=== PATIENT | female | born 1960 | race Caucasian/White ===

== ENCOUNTER 2018-02-04 19:12 | Emergency (ER) | payer MEDICARE, MEDICAID ==
--- NOTE | 2018-02-04 20:01 | EDM.PDOC ---
ED HPI GENERAL MEDICAL PROBLEM - General Chief Complaint: General Stated Complaint: LOWER ABDOMINAL PAIN Time Seen by Provider: 02/04/18 19:30 Source of Information: Reports: Patient History Limitations: Reports: No Limitations - History of Present Illness INITIAL COMMENTS - FREE TEXT/NARRATIVE: According to patient she started to have abdominal pain around 9 Am today. pain was around the umbilicus and was waxing and waning type, the pain got intense around noon and she had 2 episodes of vomiting, which contained undigested food particles. Last episode of vomiting was round 4 Pm today, at which point the pain resolved and presently patient feels fine. no nausea or abdominal pain.Pt has had normal bowel movement today. Pt does have umbilical hernia and wants to make sure that the hernia has not ruptured or opened up. No abdominal pain or bloating. Not in any pain presently .No other complaints. Onset: Today Onset Date: 02/04/18 Onset Time: 09:00 Duration: Other (resolved presently, no discomfort) Location: Reports: Abdomen Quality: Reports: Ache Severity: Mild Improves with: Reports: None Worsens with: Reports: None Associated Symptoms: Reports: Nausea/Vomiting. Denies: Confusion, Chest Pain, Cough, Diaphoresis, Fever/Chills, Rash, Seizure, Shortness of Breath, Syncope, Weakness - Related Data Allergies Allergy/AdvReac Type Severity Reaction Status Date / Time penicillin Allergy Rash Verified 02/04/18 19:33 Home Meds: Home Meds ARIPiprazole [Abilify] 1 mg PO DAILY 03/08/15 [History] FLUoxetine HCl [Fluoxetine HCl] 40 mg PO DAILY 03/08/15 [History] Lisinopril 10 mg PO DAILY 03/08/15 [History] Simvastatin 20 mg PO DAILY 03/08/15 [History] clonazePAM [Clonazepam] 0.5 mg PO DAILY 03/08/15 [History] ARIPiprazole [Abilify] 2 mg PO DAILY 03/09/15 [History] Ibuprofen 800 mg PO DAILY 03/09/15 [History] Omeprazole 20 mg PO DAILY 03/09/15 [History] valACYclovir HCl [Valtrex] 500 mg PO DAILY PRN 03/09/15 [History] Past Medical History Cardiovascular History: Reports: [place] Other Cardiovascular History: stress test showed probably [place] Respiratory History: Reports: None Other Genitourinary History: herpes,genital Other OB/BYN History: no pregnancies reported Musculoskeletal History: Reports: None Other Musculoskeletal History: back pain history: better with past PT intervention Neurological History: Reports: None Other Psychiatric History: social phobia Oncologic (Cancer) History: Reports: None - Past Surgical History Other Cardiovascular Surgeries/Procedures: no pacemaker Other Musculoskeletal Surgeries/Procedures:: no further complaints ED ROS GENERAL - Review of Systems Review Of Systems: See Below Constitutional: Denies: Fever, Chills, Malaise HEENT: Denies: Rhinitis, Throat Pain Respiratory: Denies: Cough, Sputum Cardiovascular: Denies: Chest Pain, Lightheadedness GI/Abdominal: Reports: Abdominal Pain, Flatus, Nausea, Vomiting. Denies: Anorexia, Black Stool, Constipation, Diarrhea, Decreased Appetite, Distension : Denies: Dysuria, Flank Pain Musculoskeletal: Denies: Joint Pain, Joint Swelling Skin: Denies: Bruising, Pruritis, Rash ED EXAM, GENERAL - Physical Exam Exam: See Below Exam Limited By: No Limitations General Appearance: Alert, WD/WN Eye Exam: Bilateral Eye: EOMI, PERRL Ears: Normal External Exam, Normal Canal, Hearing Grossly Normal, Normal TMs Ear Exam: Bilateral Ear: Auricle Normal, Canal Normal, TM normal Nose: Normal Inspection, Normal Mucosa, No Blood Throat/Mouth: Normal Inspection, Normal Lips, Normal Teeth, Normal Gums, Normal Oropharynx, Normal Voice, No Airway Compromise Head: Atraumatic, Normocephalic Neck: Normal Inspection, Supple, Non-Tender, Full Range of Motion Respiratory/Chest: No Respiratory Distress, Lungs Clear, Normal Breath Sounds, No Accessory Muscle Use, Chest Non-Tender Cardiovascular: Normal Peripheral Pulses, Regular Rate, Rhythm, No Edema, No Gallop, No JVD, No Murmur, No Rub Peripheral Pulses: 2+: Carotid (L), Carotid (R), Radial (L), Radial (R) GI/Abdominal: Normal Bowel Sounds, Soft, Non-Tender, No Organomegaly, No Distention, No Abnormal Bruit, No Mass, Other (On palation deep in the umbilical area. there is a midline defect felt proximal to umbilicus about 2 cm in lenght. + cough impulse. The hernial sac is empty.) Course - Vital Signs Text/Narrative:: Pt reassured that she does have abdominal wall defect superior to the umbilcs. So she might have had partial omentum or small bowel strangulation, which has naturally reduced at this point. Her symptoms have compeltely resolved. I have advised patient to not iftt heavy weight. avoid constipation and also hold pillow against abdomen when she cough to prevent hernial enlargement. Also She will be scheduled to have surgical consult with Dr. Solis the visiting general surgeon at [facility]. If her symptoms reoccur advised to return to emergency room [facility].Pt understands and agrees with the plan. Departure - Departure Time of Disposition: 20:00 Disposition: Home, Self-Care 01 Condition: Fair Clinical Impression: Umbilical hernia - Discharge Information Additional Instructions: Pt reassured that she does have abdominal wall defect superior to the umbilcs. So she might have had partial omentum or small bowel strangulation, which has naturally reduced at this point. Her symptoms have compeltely resolved. I have advised patient to not iftt heavy weight. avoid constipation and also hold pillow against abdomen when she cough to prevent hernial enlargement. Also She will be scheduled to have surgical consult with Dr. Solis the visiting general surgeon at [facility]. If her symptoms reoccur advised to return to emergency room [facility].Pt understands and agrees with the plan. - Problem List & Annotations (1) Umbilical hernia SNOMED Code(s): 260454977 Code(s): K42.9 - UMBILICAL HERNIA WITHOUT OBSTRUCTION OR GANGRENE Status: Acute - Problem List Review Problem List Initiated/Reviewed/Updated: Yes - Assessment/Plan Assessment:: Umbilical hernia Plan: Pt reassured that she does have abdominal wall defect superior to the umbilcs. So she might have had partial omentum or small bowel strangulation, which has naturally reduced at this point. Her symptoms have compeltely resolved. I have advised patient to not iftt heavy weight. avoid constipation and also hold pillow against abdomen when she cough to prevent hernial enlargement. Also She will be scheduled to have surgical consult with Dr. Solis the visiting general surgeon at [facility]. If her symptoms reoccur advised to return to emergency room [facility]NE.Pt understands and agrees with the plan.
[2018-02-04 21:59] VITALS: BP 100/69
== END 2018-02-04 20:06 | disposition home or self-care (01) ==
LOC: LB.ED 19:12
DX: K42.9 Umbilical hernia without obstruction or gangrene (principal); Z88.0 Allergy status to penicillin; Z79.899 Other long term (current) drug therapy
CPT/HCPCS: 99283; 99284

== ENCOUNTER 2018-03-15 08:24 | Day surgery (SDC) | payer MEDICARE, MEDICAID ==
[~2018-03-15 08:24] MED LIST: Acetaminophen/HYDROcodone 325-5 MG Tab PO PRN; Lactated Ringers 1,000 ML IV SCH; Morphine 2 MG/ML Syringe IVPUSH PRN; Ondansetron 4 MG/2 ML SDV IVPUSH PRN; Sodium Chloride 0.9% 10 ML Syringe FLUSH PRN; ceFAZolin 1 GM in Sodium Chloride 0.9% 50 ML IV ONE
[2018-03-15] MEDS: Lactated Ringers 1,000 ML IV SCH ×2 (09:16→13:33)
[2018-03-15] MEDS ORDERED: ceFAZolin 1 GM Vial ONE (09:55)
[2018-03-15] MEDS ORDERED: Clindamycin Phosphate 900 MG in Dextrose 5% in Water 50 ML IV ONE ×2 (11:50)
[2018-03-15] MEDS ORDERED: Ondansetron 4 MG/2 ML SDV ONE (12:30)
[2018-03-15] MEDS ORDERED: Dexamethasone 4 MG/ML SDV ONE (12:30)
[2018-03-15] MEDS ORDERED: Ketorolac 30 MG/ML SDV ONE (12:30)
[2018-03-15] MEDS ORDERED: Glycopyrrolate 0.2 MG/ML 2 ML SDV ONE (12:30)
[2018-03-15] MEDS ORDERED: Midazolam 1 MG/ML 5 ML SDV ONE (12:30)
[2018-03-15] MEDS ORDERED: ceFAZolin 1,000 MG VIAL ONE (12:30)
[2018-03-15] MEDS ORDERED: Succinylcholine 200 MG/10 ML MDV ONE (12:30)
[2018-03-15] MEDS ORDERED: Propofol 200 MG/20 ML SDV ONE (12:30)
[2018-03-15] MEDS ORDERED: Lidocaine 2% 20 ML MDV ONE (12:30)
[2018-03-15] MEDS ORDERED: ePHEDrine 50 MG/ML SDV ONE (12:30)
--- NOTE | 2018-03-15 13:54 | OR ---
DATE OF OPERATION: 03/15/2018 DIRECT SALES CONSULTANT: Yandy Stafford RN. PREOPERATIVE DIAGNOSIS: Recurrent umbilical hernia. POSTOPERATIVE DIAGNOSIS: Recurrent umbilical hernia. PROCEDURE: Open umbilical hernia repair with explantation of old mesh and reimplantation of mesh. ANESTHESIA: General. ESTIMATED BLOOD LOSS: Minimal. COMPLICATIONS: None. INDICATION FOR THE PROCEDURE: The patient is a 57-year-old female, who has had previous open umbilical hernia repair. The patient now feels she has recurrence. She does have palpable mesh in the subcutaneous space, and she would like it repaired. DESCRIPTION OF PROCEDURE: Informed consent was obtained from the patient. The patient was taken to the operating room and placed on table in supine position. General anesthesia was administered. The patient did receive preoperative antibiotics. Her abdomen was prepped and draped in a sterile fashion. Skin to the left periumbilical area was infiltrated with local anesthetic. Opening incision carried out with a 15 blade to the left of the umbilicus. I dissected down through the subcutaneous tissues with blunt dissection as well as with electrocautery. Mesh was palpable. We did come around the umbilicus and mesh with P on clamps. The umbilicus was bluntly and sharply dissected free from the mesh and underlying subcutaneous tissue. Once the umbilicus was off, the mesh was grasped with Allis clamps. Hernia sac was present around this as well. Hernia sac was opened with Metzenbaum scissors. Hernia sac was sharply dissected away from the previously placed mesh plug with sharp dissection as well as electrocautery. Mesh plug was then removed and passed off the field. The remaining hernia sac was excised with electrocautery. The hernia defect measured about 8 mm, slightly extended inferiorly to create room for mesh. Finger sweep showed no intraabdominal adhesions. A 4.3 cm piece of self-expanding mesh was chosen. This was sutured in place with 2-0 Prolene suture in a parachute fashion. Once these were tied, the hernia defect was nicely obliterated. Fascia was then closed with 0 Vicryl suture. The wound was irrigated and dried. No active bleeding was seen. The umbilicus was tacked down to the fascia with 2-0 Vicryl and subcutaneous tissue was reapproximated with 2-0 Vicryl. Deep dermal layer was closed with 3-0 Vicryl. Skin was closed with 4-0 Monocryl in a running, subcuticular fashion. At the end of the case, all sponge, needle counts, and instrument counts correct. Mastisol Steri- Strips and a sterile dressing was applied. The patient tolerated the procedure well, was extubated, and brought to recovery room in good condition. YARIEL /[id number]
[2018-03-15 14:06] VITALS: BP 148/88
== END 2018-03-15 15:46 | disposition home or self-care (01) ==
LOC: LB.SDS 08:24
PROVIDERS: ATTEND Surgery
DX: K42.9 Umbilical hernia without obstruction or gangrene (principal); Z88.0 Allergy status to penicillin
CPT/HCPCS: A9270-GY; C1781; J0330; J0690; J1100; J1885; J2250; J2270; J2405; J2704; J3490; J7050; J7060; J7120; S0077

== ENCOUNTER 2019-01-14 12:50 | Emergency (ER) | payer MEDICARE, MEDICAID ==
[2019-01-14 13:58] VITALS: BP 150/98
--- NOTE | 2019-01-14 14:26 | EDM.PDOCBH ---
ED HPI GENERAL MEDICAL PROBLEM - General Chief Complaint: Behavioral/Psych Stated Complaint: CAN'T HEAR Time Seen by Provider: 01/14/19 13:30 Source of Information: Reports: Patient History Limitations: Reports: No Limitations - History of Present Illness INITIAL COMMENTS - FREE TEXT/NARRATIVE: This is a 58yo F here for concerns of feeling off and lightheaded. She denies the room spinning but feels anxious. She denies feeling like she has to pass out either. Patient has a feeling of worry and unable to stand still and possibly dizzy. She denies any chest pain, no shortness of breath or other health issues. Onset: Sudden Duration: Minutes:, Resolved Prior to Arrival Location: Reports: Generalized Severity: Mild Improves with: Reports: None Worsens with: Reports: None Associated Symptoms: Reports: Diaphoresis - Related Data Allergies Allergy/AdvReac Type Severity Reaction Status Date / Time penicillin Allergy Rash Verified 03/15/18 08:58 Home Meds: Home Meds FLUoxetine HCl [Fluoxetine HCl] 60 mg PO DAILY 03/08/15 [History] Lisinopril 10 mg PO DAILY 03/08/15 [History] Simvastatin 20 mg PO QPM 03/08/15 [History] clonazePAM [Clonazepam] 0.5 mg PO BID 03/08/15 [History] ARIPiprazole [Abilify] 1 mg PO DAILY 03/09/15 [History] Ibuprofen 800 mg PO TID PRN 03/09/15 [History] Omeprazole 20 mg PO DAILY 03/09/15 [History] Aspirin [Yana Chewable] 81 mg PO DAILY 02/04/18 [History] Acyclovir [Zovirax 5% Oint] 1 applic TOP DAILY PRN 03/15/18 [History] Past Medical History Cardiovascular History: Reports: High Cholesterol, Hypertension, [place] Other Cardiovascular History: stress test showed probably [place] Respiratory History: Reports: None Gastrointestinal History: Reports: GERD, Other (See Below) Other Gastrointestinal History: Umbilical Hernia Other Genitourinary History: herpes,genital 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 pregnancies reported Musculoskeletal History: Reports: None Other Musculoskeletal History: back pain history: better with past PT intervention Neurological History: Reports: None, Migraines Other Neuro History: had migraines several years ago Psychiatric History: Reports: Anxiety, Depression, PTSD Other Psychiatric History: social phobia Oncologic (Cancer) History: Reports: None - Past Surgical History Other Cardiovascular Surgeries/Procedures: no pacemaker GI Surgical History: Reports: Hernia Repair/Other Other GI Surgeries/Procedures: Umbilical Hernia repair Other Musculoskeletal Surgeries/Procedures:: no further complaints Social & Family History - Family History Family Medical History: Noncontributory - Tobacco Use Smoking Status *Q: Never Smoker - Caffeine Use Caffeine Use: Reports: Coffee - Recreational Drug Use Recreational Drug Use: No ED ROS GENERAL - Review of Systems Review Of Systems: ROS reveals no pertinent complaints other than HPI. ED EXAM, BEHAVIORAL HEALTH - Physical Exam Exam: See Below Exam Limited By: No Limitations General Appearance: Alert, WD/WN, Mild Distress Eye Exam: Bilateral Eye: EOMI, PERRL Ears: Normal External Exam Nose: Normal Inspection Throat/Mouth: Normal Inspection Head: Atraumatic, Normocephalic Neck: Normal Inspection, Supple Respiratory/Chest: No Respiratory Distress, Lungs Clear, Normal Breath Sounds Cardiovascular: Normal Peripheral Pulses, Regular Rate, Rhythm, No Edema GI/Abdominal: Normal Bowel Sounds Extremities: Normal Inspection Neurological: Alert, Normal Mood/Affect, CN II-XII Intact, Normal Cognition, Normal Gait, Normal Reflexes, No Motor/Sensory Deficits, Oriented x 3 COURSE, BEHAVIORAL HEALTH COMP - Course Vital Signs: Last Vital Signs Temp 36.6 C 01/14/19 12:50 Pulse 69 01/14/19 12:50 Resp 16 01/14/19 12:50 BP 150/98 H 01/14/19 12:50 Pulse Ox 96 01/14/19 12:50 Orders, Labs, Meds: Active Orders 24 hr Category Date Time Status UA W/MICROSCOPIC [URIN] Stat Lab 01/14/19 13:38 Ordered Laboratory Tests 01/14/19 01/14/19 Range/Units 13:38 13:38 WBC 8.1 (4.0-11.0) K/uL RBC 4.53 (3.80-5.80) M/uL Hgb 13.6 (11.5-16.5) g/dL Hct 41.1 (37.0-47.0) % MCV 91 (76-96) fL MCH 30.0 (27.0-32.0) pg MCHC 33.1 (31.0-35.0) g/dL RDW 12.5 (11.0-16.0) % Plt Count 215 (150-500) K/uL MPV 10.2 H (6.0-10.0) fL Neut % (Auto) 69.3 (45.0-70.0) % Lymph % (Auto) 20.6 (20.0-40.0) % Branch % (Auto) 8.2 (3.0-10.0) % Eos % (Auto) 1.5 (1.0-5.0) % Baso % (Auto) 0.4 (0.0-0.5) % Neut # (Auto) 5.59 (2.00-7.50) K/uL Lymph # (Auto) 1.66 (1.50-4.00) K/uL Branch # (Auto) 0.66 (0.20-0.80) K/uL Eos # (Auto) 0.12 (0.04-0.40) K/uL Baso # (Auto) 0.03 (0.02-0.10) K/uL Sodium 141 (136-145) mmol/L Potassium 4.3 (3.5-5.1) mmol/L Chloride 103 (98-107) mmol/L Carbon Dioxide 28.2 (21.0-32.0) mmol/L Anion Gap 14.1 (5.0-15.0) mmol/L BUN 10 (8-26) mg/dL Creatinine 1.05 H (0.55-1.02) mg/dL Est Cr Clr Drug Dosing 5.35 mL/min Estimated GFR (MDRD) 53 L (>60) MLS/MIN BUN/Creatinine Ratio 9.5 (6-25) Glucose 84 (74-100) mg/dL Calcium 9.0 (8.5-10.1) mg/dL Total Bilirubin 0.3 D (0.0-1.0) mg/dL AST 20 (15-37) U/L ALT 30 (12-78) U/L Alkaline Phosphatase 68 (46-116) U/L Total Protein 7.7 (6.4-8.2) g/dL Albumin 3.9 (3.4-5.0) g/dL Globulin 3.8 (2.2-4.2) g/dL Albumin/Globulin Ratio 1.0 (0.8-2.0) TSH, Ultra Sensitive 0.532 (0.358-3.740) uIU/mL Departure - Departure Time of Disposition: 14:00 Disposition: Home, Self-Care 01 Condition: Good Clinical Impression: Anxiety - Discharge Information Referrals: PCP,None [Primary Care Provider] - Forms: ED Department Discharge Care Plan Goals: Keep appointment with Dr. Johns. Can try to cut abilify in 1/2. Your labs are good. Ask Dr. Gomez if he would like to change dose of abilify. - Problem List & Annotations (1) Anxiety SNOMED Code(s): 32511233 Code(s): F41.9 - ANXIETY DISORDER, UNSPECIFIED Status: Acute - Problem List Review Problem List Initiated/Reviewed/Updated: Yes - My Orders Last 24 Hours: My Active Orders 01/14/19 13:38 UA W/MICROSCOPIC [URIN] Stat - Assessment/Plan Last 24 Hours: My Active Orders 01/14/19 13:38 UA W/MICROSCOPIC [URIN] Stat
== END 2019-01-14 14:41 | disposition home or self-care (01) ==
LOC: LB.ED 12:50
DX: F41.9 Anxiety disorder, unspecified (principal); K21.9 Gastro-esophageal reflux disease without esophagitis; I10 Essential (primary) hypertension; I25.2 Old myocardial infarction; F32.9 Major depressive disorder, single episode, unspecified; Z79.899 Other long term (current) drug therapy; Z79.82 Long term (current) use of aspirin; Z88.0 Allergy status to penicillin
CPT/HCPCS: 36415; 80053; 84443; 85025; 99283

== ENCOUNTER 2019-01-17 19:59 | Emergency (ER) | payer MEDICARE, MEDICAID ==
[2019-01-17 20:24] VITALS: BP 103/84
[2019-01-17] MEDS ORDERED: risperiDONE 1 MG Tab ONE ×2 (20:33→20:40)
--- NOTE | 2019-01-21 13:07 | EDM.PDOC ---
ED HPI GENERAL MEDICAL PROBLEM - General Chief Complaint: General Stated Complaint: ANXIETY/MEDS DID NOT GET FILLED Time Seen by Provider: 01/17/19 20:00 Source of Information: Reports: Patient History Limitations: Reports: No Limitations - History of Present Illness INITIAL COMMENTS - FREE TEXT/NARRATIVE: This is a 58yo F who had a telemedicine consult today that was not able to be done due to the internet being down. She did discuss with Dr. Lopez's nurse and was ordered to take 0.5 mg of Risperidal qhs and f/u with Dr. Lopez. She is anxious that her symptoms are worsening and would like to start on her medications but did not find her prescription at the pharmacy today. Onset: Today Location: Reports: Generalized Severity: Mild Improves with: Reports: Medication Treatments TRANSPORTATION OFFICER: Reports: Other Medication(s) - Related Data Allergies Allergy/AdvReac Type Severity Reaction Status Date / Time penicillin Allergy Rash Verified 01/17/19 20:20 Home Meds: Home Meds FLUoxetine HCl [Fluoxetine HCl] 60 mg PO DAILY 03/08/15 [History] Lisinopril 10 mg PO DAILY 03/08/15 [History] Simvastatin 20 mg PO QPM 03/08/15 [History] clonazePAM [Clonazepam] 0.5 mg PO TID 03/08/15 [History] ARIPiprazole [Abilify] 0.5 mg PO DAILY 03/09/15 [History] Ibuprofen 800 mg PO TID PRN 03/09/15 [History] Omeprazole 20 mg PO ACBREAKFAST 03/09/15 [History] Aspirin [Yana Chewable] 81 mg PO DAILY 02/04/18 [History] Acyclovir [Zovirax 5% Oint] 1 applic TOP DAILY PRN 03/15/18 [History] Past Medical History Cardiovascular History: Reports: High Cholesterol, Hypertension, [place] Other Cardiovascular History: stress test showed probably [place] Respiratory History: Reports: None Gastrointestinal History: Reports: GERD, Other (See Below) Other Gastrointestinal History: Umbilical Hernia Other Genitourinary History: herpes,genital 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 SHEET 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: no pregnancies reported Musculoskeletal History: Reports: None Other Musculoskeletal History: back pain history: better with past PT intervention Neurological History: Reports: None, Migraines Other Neuro History: had migraines several years ago Psychiatric History: Reports: Anxiety, Depression, PTSD Other Psychiatric History: social phobia Oncologic (Cancer) History: Reports: None - Past Surgical History Other Cardiovascular Surgeries/Procedures: no pacemaker GI Surgical History: Reports: Hernia Repair/Other Other GI Surgeries/Procedures: Umbilical Hernia repair Other Musculoskeletal Surgeries/Procedures:: no further complaints Social & Family History - Family History Family Medical History: Noncontributory - Caffeine Use Caffeine Use: Reports: Coffee ED ROS GENERAL - Review of Systems Review Of Systems: ROS reveals no pertinent complaints other than HPI. ED EXAM, GENERAL - Physical Exam Exam: See Below Exam Limited By: No Limitations General Appearance: Alert, WD/WN, Anxious Eye Exam: Bilateral Eye: EOMI Ears: Normal External Exam Nose: Normal Inspection Throat/Mouth: Normal Inspection Head: Atraumatic, Normocephalic Neck: Normal Inspection Respiratory/Chest: No Respiratory Distress, Lungs Clear, Normal Breath Sounds Cardiovascular: Normal Peripheral Pulses, Regular Rate, Rhythm GI/Abdominal: Normal Bowel Sounds Neurological: Alert, Oriented, CN II-XII Intact Course - Vital Signs Last Recorded V/S: Last Vital Signs Temp 36.6 C 01/17/19 20:16 Pulse 60 01/17/19 20:16 Resp 18 01/17/19 20:16 BP 103/84 01/17/19 20:16 Pulse Ox 96 01/17/19 20:16 - Orders/Labs/Meds Meds: Medications Discontinued Medications Generic Name Dose Route Start Last Admin Trade Name Agata PRN Reason Stop Dose Admin Risperidone Confirm 01/17/19 20:33 Risperidal Administered 01/17/19 20:34 Dose 1 mg .ROUTE .STK-MED ONE Risperidone 1 mg 01/17/19 20:40 Risperidal .ROUTE 01/17/19 20:41 .STK-MED ONE Departure - Departure Time of Disposition: 20:30 Disposition: Home, Self-Care 01 Condition: Good Clinical Impression: Depression with anxiety - Discharge Information Instructions: Risperidone orally-disintegrating tablets Referrals: PCP,None [Primary Care Provider] - Forms: ED Department Discharge Additional Instructions: Take Risperidone 0.5mg tonight before bed. Call Dr. Lopez's office in the morning to see about getting your script sent. If you can't get ahold of them, call the clinic before 4:00pm so Dr. Cleaning can prescribe you more. - Problem List & Annotations (1) Depression with anxiety SNOMED Code(s): 065117527 Code(s): F41.8 - OTHER SPECIFIED ANXIETY DISORDERS Status: Acute - Problem List Review Problem List Initiated/Reviewed/Updated: Yes - Assessment/Plan Plan: Counseled on medication side effects and risks. Discussed continued close monitoring and f/u with Dr. Lopez or rtc or ER as needed if any issues or concerns.
== END 2019-01-17 20:42 | disposition home or self-care (01) ==
LOC: LB.ED 19:59
DX: F41.8 Other specified anxiety disorders (principal); I10 Essential (primary) hypertension; E78.00 Pure hypercholesterolemia, unspecified; I25.2 Old myocardial infarction; Z79.82 Long term (current) use of aspirin; Z88.0 Allergy status to penicillin; Z79.899 Other long term (current) drug therapy
CPT/HCPCS: 99282; A9270-GY

== ENCOUNTER 2020-05-12 14:21 | Observation (INO) | payer MEDICARE, MEDICAID ==
[2020-05-12] MEDS ORDERED: Sodium Chloride 0.9% 10 ML Syringe FLUSH PRN (14:35)
[2020-05-12] MEDS ORDERED: Sodium Chloride 0.9% 1,000 ML IV ONE (14:35)
[2020-05-12] MEDS ORDERED: Loperamide 2 MG Cap PO PRN (14:57)
[2020-05-12] MEDS ORDERED: Ondansetron 4 MG/2 ML SDV IVPUSH ONE ×2 (14:57→15:37)
[2020-05-12] MEDS ORDERED: Ondansetron 4 MG/2 ML SDV ONE ×2 (15:04→15:46)
--- NOTE | 2020-05-12 15:16 | EDM.PDOC ---
ED HPI GENERAL MEDICAL PROBLEM - General Chief Complaint: General Stated Complaint: SOB, DIARRHEA, VOMITING Time Seen by Provider: 05/12/20 15:00 Source of Information: Reports: EMS History Limitations: Reports: No Limitations - History of Present Illness INITIAL COMMENTS - FREE TEXT/NARRATIVE: Acute onset of simultaneous vomiting and diarrhea, states SOB was from severe cramping she was experiencing during profuse vomiting and diarrhea. Best episodes of number of times vomiting 7-8 (non-bloody) and diarrhea -8 x (non-bloody). No fevers, feeling weak. No exposure to COVID she is aware of. Major medical problems: htn, hyperlipidemia anxiety and major depression. Remote hx for OH and Alcohol addiction - quit 6 years ago. Daily habit of marijuana usage for her anxiety. Onset: Today Onset Date: 05/12/20 Onset Time: 10:00 Duration: Hour(s):, Waxing/Waning Location: Reports: Abdomen Quality: Reports: Pressure, Sharp Severity: Moderate Improves with: Reports: None Worsens with: Reports: None Associated Symptoms: Reports: Nausea/Vomiting, Weakness - Related Data Allergies Allergy/AdvReac Type Severity Reaction Status Date / Time penicillin Allergy Rash Verified 05/12/20 15:03 Home Meds: Home Meds FLUoxetine HCl [Fluoxetine HCl] 60 mg PO DAILY 03/08/15 [History] Lisinopril 10 mg PO DAILY 03/08/15 [History] Simvastatin 20 mg PO QPM 03/08/15 [History] clonazePAM [Clonazepam] 0.5 mg PO TID 03/08/15 [History] ARIPiprazole [Abilify] 0.5 mg PO DAILY 03/09/15 [History] Ibuprofen 800 mg PO TID PRN 03/09/15 [History] Omeprazole 20 mg PO ACBREAKFAST 03/09/15 [History] Aspirin [Yana Chewable] 81 mg PO DAILY 02/04/18 [History] Acyclovir [Zovirax 5% Oint] 1 applic TOP DAILY PRN 03/15/18 [History] risperiDONE 0.5 mg PO DAILY 05/12/20 [History] Past Medical History Cardiovascular History: Reports: High Cholesterol, Hypertension, [place] Other Cardiovascular History: stress test showed probably [place] Respiratory History: Reports: None Gastrointestinal History: Reports: GERD, Other (See Below) Other Gastrointestinal History: Umbilical Hernia Other Genitourinary History: herpes,genital Other WING COVERER History: no pregnancies reported Musculoskeletal History: Reports: None Other Musculoskeletal History: back pain history: better with past PT intervention Neurological History: Reports: Migraines Other Neuro History: had migraines several years ago Psychiatric History: Reports: Anxiety, Depression, PTSD Other Psychiatric History: social phobia Oncologic (Cancer) History: Reports: None - Past Surgical History Other Cardiovascular Surgeries/Procedures: no pacemaker GI Surgical History: Reports: Hernia Repair/Other Other GI Surgeries/Procedures: Umbilical Hernia repair Other Musculoskeletal Surgeries/Procedures:: no further complaints Social & Family History - Family History Family Medical History: Noncontributory - Tobacco Use Smoking Status *Q: Never Smoker Second Hand Smoke Exposure: No - Caffeine Use Caffeine Use: Reports: Soda - Recreational Drug Use Recreational Drug Use: Yes Drug Use in Last 12 Months: Yes Recreational Drug Type: Reports: Marijuana/Hashish Recreational Drug Use Frequency: Daily ED ROS GENERAL - Review of Systems Review Of Systems: See Below Constitutional: Reports: Weakness. Denies: Fever, Diaphoresis Respiratory: Reports: No Symptoms Cardiovascular: Reports: No Symptoms GI/Abdominal: Reports: Abdominal Pain, Nausea, Vomiting. Denies: Black Stool, Bloody Stool, Stool Incontinence : Reports: No Symptoms Musculoskeletal: Reports: No Symptoms Skin: Reports: No Symptoms Neurological: Reports: No Symptoms Psychiatric: Reports: Anxiety ED EXAM, GENERAL - Physical Exam Exam: See Below Exam Limited By: No Limitations General Appearance: Alert, WD/WN, Anxious, Mild Distress Ears: Normal External Exam Head: Atraumatic, Normocephalic Neck: Normal Inspection, Supple Respiratory/Chest: No Respiratory Distress, Lungs Clear, Normal Breath Sounds, No Accessory Muscle Use Cardiovascular: Normal Peripheral Pulses, Regular Rate, Rhythm, No Edema GI/Abdominal: Soft. No: Distended Back Exam: Normal Inspection Neurological: Alert, Oriented, CN II-XII Intact, Normal Cognition Psychiatric: Anxious Skin Exam: Warm, Dry, Intact, Normal Color Course - Vital Signs Last Recorded V/S: Last Vital Signs Temp 95.5 F L 05/12/20 15:55 Pulse 60 05/12/20 15:55 Resp 15 05/12/20 15:55 BP 126/91 H 05/12/20 15:55 Pulse Ox 99 05/12/20 15:55 - Orders/Labs/Meds Orders: Active Orders 24 hr Category Date Time Status CLOSTRIDIUM DIFFICILE BY PCR [] Stat Lab 05/12/20 15:54 Ordered CULTURE BLOOD [BC] Stat Lab 05/12/20 14:55 Received CULTURE BLOOD [BC] Stat Lab 05/12/20 15:50 Received STOOL CULTURE Urgent Lab 05/12/20 15:45 Ordered Loperamide [Imodium] Med 05/12/20 14:57 Active 2 mg PO ASDIRECTED PRN Sodium Chloride 0.9% [Saline Flush] Med 05/12/20 14:35 Active 10 ml FLUSH ASDIRECTED PRN Isolation [COMM] Stat Oth 05/12/20 15:47 Active Peripheral IV Insertion Adult [OM.PC] Routine Oth 05/12/20 14:35 Ordered Medication Orders Levofloxacin/Dextrose 500 mg/ (Premix) 100 mls @ 100 mls/hr IV Q24H ROMAN Loperamide HCl (Imodium) 2 mg PO ASDIRECTED PRN PRN Reason: Diarrhea Last Admin: 05/12/20 15:17 Dose: 2 mg Documented by: BERNADINE Sodium Chloride (Saline Flush) 10 ml FLUSH ASDIRECTED PRN PRN Reason: Keep Vein Open Labs: Laboratory Tests 05/12/20 05/12/20 05/12/20 Range/Units 14:30 15:00 15:00 WBC 21.2 H* D (4.0-11.0) K/uL RBC 4.25 (3.80-5.80) M/uL Hgb 14.2 (11.5-16.5) g/dL Hct 41.4 (37.0-47.0) % MCV 97 H (76-96) fL MCH 33.4 H (27.0-32.0) pg MCHC 34.3 (31.0-35.0) g/dL RDW 13.1 (11.0-16.0) % Plt Count 262 (150-500) K/uL MPV 9.8 (6.0-10.0) fL Add Manual Diff Yes Neutrophils % (Manual) 95.0 H (45.0-70.0) % Lymphocytes % (Manual) 4.0 L (20.0-40.0) % Monocytes % (Manual) 1.0 L (3.0-10.0) % Platelet Estimate Adequate Sodium 140 (136-145) mmol/L Potassium 4.2 (3.5-5.1) mmol/L Chloride 105 (98-107) mmol/L Carbon Dioxide 20.7 L D (21.0-32.0) mmol/L Anion Gap 18.5 H (5.0-15.0) mmol/L BUN 14 D (8-26) mg/dL Creatinine 0.87 (0.55-1.02) mg/dL Est Cr Clr Drug Dosing 66.03 mL/min Estimated GFR (MDRD) > 60 (>60) MLS/MIN BUN/Creatinine Ratio 16.1 (6-25) Glucose 149 H D (74-100) mg/dL Lactic Acid (0.4-2.0) mmol/L Calcium 9.3 (8.5-10.1) mg/dL Total Bilirubin 0.3 (0.0-1.0) mg/dL AST 17 (15-37) U/L ALT 23 (12-78) U/L Alkaline Phosphatase 78 (46-116) U/L Total Protein 7.9 (6.4-8.2) g/dL Albumin 3.6 (3.4-5.0) g/dL Globulin 4.3 H (2.2-4.2) g/dL Albumin/Globulin Ratio 0.8 (0.8-2.0) COVID-19 (ALEX) Negative 05/12/20 Range/Units 15:00 WBC (4.0-11.0) K/uL RBC (3.80-5.80) M/uL Hgb (11.5-16.5) g/dL Hct (37.0-47.0) % MCV (76-96) fL MCH (27.0-32.0) pg MCHC (31.0-35.0) g/dL RDW (11.0-16.0) % Plt Count (150-500) K/uL MPV (6.0-10.0) fL Add Manual Diff Neutrophils % (Manual) (45.0-70.0) % Lymphocytes % (Manual) (20.0-40.0) % Monocytes % (Manual) (3.0-10.0) % Platelet Estimate Sodium (136-145) mmol/L Potassium (3.5-5.1) mmol/L Chloride (98-107) mmol/L Carbon Dioxide (21.0-32.0) mmol/L Anion Gap (5.0-15.0) mmol/L BUN (8-26) mg/dL Creatinine (0.55-1.02) mg/dL Est Cr Clr Drug Dosing mL/min Estimated GFR (MDRD) (>60) MLS/MIN BUN/Creatinine Ratio (6-25) Glucose (74-100) mg/dL Lactic Acid 2.1 H (0.4-2.0) mmol/L Calcium (8.5-10.1) mg/dL Total Bilirubin (0.0-1.0) mg/dL AST (15-37) U/L ALT (12-78) U/L Alkaline Phosphatase (46-116) U/L Total Protein (6.4-8.2) g/dL Albumin (3.4-5.0) g/dL Globulin (2.2-4.2) g/dL Albumin/Globulin Ratio (0.8-2.0) COVID-19 (ALEX) Meds: Medications Generic Name Dose Route Start Last Admin Trade Name Freq PRN Reason Stop Dose Admin Levofloxacin/Dextrose 500 mg/ 100 mls @ 100 mls/hr 05/12/20 16:00 Premix IV Q24H ROMAN Loperamide HCl 2 mg 05/12/20 14:57 05/12/20 15:17 Imodium PO 2 mg ASDIRECTED PRN Administration Diarrhea Sodium Chloride 10 ml 05/12/20 14:35 Saline Flush FLUSH ASDIRECTED PRN Keep Vein Open Discontinued Medications Generic Name Dose Route Start Last Admin Trade Name Freq PRN Reason Stop Dose Admin Ceftriaxone Sodium Confirm 05/12/20 15:42 05/12/20 15:49 Rocephin Administered 05/12/20 15:43 Not Given Dose 1 gm .ROUTE .STK-MED ONE Sodium Chloride 1,000 mls @ 999 mls/hr 05/12/20 14:35 05/12/20 14:42 Normal Saline IV 05/12/20 15:35 999 mls/hr .BOLUS ONE Administration Ceftriaxone Sodium 1 gm/ 50 mls @ 100 mls/hr 05/12/20 15:37 05/12/20 15:49 Sodium Chloride IV 05/12/20 16:06 Not Given ONETIME ONE Loperamide HCl Confirm 05/12/20 15:26 05/12/20 15:49 Imodium Administered 05/12/20 15:27 Not Given Dose 2 mg .ROUTE .STK-MED ONE Ondansetron HCl Confirm 05/12/20 15:04 05/12/20 15:50 Zofran Administered 05/12/20 15:05 Not Given Dose 4 mg .ROUTE .STK-MED ONE Ondansetron HCl 4 mg 05/12/20 14:57 05/12/20 14:58 Zofran IVPUSH 05/12/20 14:58 4 mg ONETIME ONE Administration Ondansetron HCl 4 mg 05/12/20 15:37 05/12/20 15:48 Zofran IVPUSH 05/12/20 15:38 4 mg ONETIME ONE Administration Ondansetron HCl Confirm 05/12/20 15:46 05/12/20 15:50 Zofran Administered 05/12/20 15:47 Not Given Dose 4 mg .ROUTE .STK-MED ONE - Re-Assessments/Exams Free Text/Narrative Re-Assessment/Exam: 05/12/20 16:03 White count 21.2 thousand Orders: Stool Culture C-Diff Levaquin started Admitted to Observation spoke with her primary doctor : Dr Cleaning Will speak with e-hospitalist - Dr Thornton Departure - Departure Time of Disposition: 16:07 Disposition: Refer to Observation Clinical Impression: Gastroenteritis - Discharge Information *PRESCRIPTION DRUG MONITORING PROGRAM REVIEWED*: Not Applicable *COPY OF PRESCRIPTION DRUG MONITORING REPORT IN PATIENT ARIELLE: Not Applicable Sepsis Event Note (ED) - Evaluation Sepsis Screening Result: No Definite Risk - Focused Exam Vital Signs: Vital Signs Temp Pulse Resp BP Pulse Ox 05/12/20 15:19 60 22 H 139/71 100 05/12/20 15:13 73 20 143/62 H 05/12/20 15:09 63 18 126/93 H 100 05/12/20 15:08 63 18 139/92 H 100 05/12/20 14:28 97.3 F 59 L 20 168/97 H 100 05/12/20 14:27 97.3 F 59 L 18 168/97 H 100 - My Orders Last 24 Hours: My Active Orders 05/12/20 14:35 Sodium Chloride 0.9% [Saline Flush] 10 ml FLUSH ASDIRECTED PRN Peripheral IV Insertion Adult [OM.PC] Routine 05/12/20 14:55 CULTURE BLOOD [BC] Stat 05/12/20 14:57 Loperamide [Imodium] 2 mg PO ASDIRECTED PRN 05/12/20 15:45 STOOL CULTURE Urgent 05/12/20 15:47 Isolation [COMM] Stat 05/12/20 15:50 CULTURE BLOOD [BC] Stat 05/12/20 15:54 CLOSTRIDIUM DIFFICILE BY PCR [RM] Stat - Assessment/Plan Last 24 Hours: My Active Orders 05/12/20 14:35 Sodium Chloride 0.9% [Saline Flush] 10 ml FLUSH ASDIRECTED PRN Peripheral IV Insertion Adult [OM.PC] Routine 05/12/20 14:55 CULTURE BLOOD [BC] Stat 05/12/20 14:57 Loperamide [Imodium] 2 mg PO ASDIRECTED PRN 05/12/20 15:45 STOOL CULTURE Urgent 05/12/20 15:47 Isolation [COMM] Stat 05/12/20 15:50 CULTURE BLOOD [BC] Stat 05/12/20 15:54 CLOSTRIDIUM DIFFICILE BY PCR [RM] Stat
[2020-05-12] MEDS ORDERED: Loperamide 2 MG Cap ONE (15:26)
[2020-05-12] MEDS ORDERED: cefTRIAXone 1 GM in Sodium Chloride 0.9% 50 ML IV ONE (15:37)
[2020-05-12] MEDS ORDERED: cefTRIAXone 1 GM Vial ONE (15:42)
[2020-05-12] MEDS ORDERED: Levofloxacin/Dextrose 5%-Water 500 MG in Premix Bag 1 BAG IV SCH (16:00)
[2020-05-12] MEDS ORDERED: Acetaminophen 325 MG Tab PO PRN (16:40)
[2020-05-12] MEDS ORDERED: Lactated Ringers 1,000 ML IV SCH (16:45)
[2020-05-12] MEDS ORDERED: HYDROmorphone 2 MG/ML SDV IVPUSH PRN (16:46)
--- NOTE | 2020-05-12 16:55 | PCM.HP.2 ---
H&P History of Present Illness - General Date of Service: 05/12/20 Admit Problem/Dx: Admission Diagnosis/Problem Admission Diagnosis/Problem Gastroenteritis presumed infectious Source of Information: Patient, RN History Limitations: Reports: Other (Patient having abdominal pain and distress) - History of Present Illness Onset of Symptoms: Reports: Today, Sudden Location: Reports: Abdomen Quality: Reports: Ache, Sharp, Stabbing Severity: Severe Improves with: Reports: Other (Vomiting and diarrhea) Worsens with: Reports: Eating Context: Reports: Other (Canned salsa) - Related Data Allergies/Adverse Reactions: Allergies Allergy/AdvReac Type Severity Reaction Status Date / Time penicillin Allergy Rash Verified 05/12/20 15:03 Home Medications: Home Meds FLUoxetine HCl [Fluoxetine HCl] 60 mg PO DAILY 03/08/15 [History] Lisinopril 10 mg PO DAILY 03/08/15 [History] Simvastatin 20 mg PO QPM 03/08/15 [History] clonazePAM [Clonazepam] 0.5 mg PO TID 03/08/15 [History] ARIPiprazole [Abilify] 0.5 mg PO DAILY 03/09/15 [History] Ibuprofen 800 mg PO TID PRN 03/09/15 [History] Omeprazole 20 mg PO ACBREAKFAST 03/09/15 [History] Aspirin [Yana Chewable] 81 mg PO DAILY 02/04/18 [History] Acyclovir [Zovirax 5% Oint] 1 applic TOP DAILY PRN 03/15/18 [History] risperiDONE 0.5 mg PO DAILY 05/12/20 [History] Past Medical History Cardiovascular History: Reports: High Cholesterol, Hypertension, [place] Other Cardiovascular History: stress test showed probably [place] Respiratory History: Reports: None Gastrointestinal History: Reports: GERD, Other (See Below) Other Gastrointestinal History: Umbilical Hernia Other Genitourinary History: herpes,genital Other OB/BYN History: no pregnancies reported Musculoskeletal History: Reports: None Other Musculoskeletal History: back pain history: better with past PT intervention Neurological History: Reports: Migraines Other Neuro History: had migraines several years ago Psychiatric History: Reports: Anxiety, Depression, PTSD Other Psychiatric History: social phobia Oncologic (Cancer) History: Reports: None - Past Surgical History Other Cardiovascular Surgeries/Procedures: no pacemaker GI Surgical History: Reports: Hernia Repair/Other Other GI Surgeries/Procedures: Umbilical Hernia repair Other Musculoskeletal Surgeries/Procedures:: no further complaints Social & Family History - Family History Family Medical History: Noncontributory - Tobacco Use Smoking Status *Q: Never Smoker Second Hand Smoke Exposure: No - Caffeine Use Caffeine Use: Reports: Soda - Recreational Drug Use Recreational Drug Use: Yes Drug Use in Last 12 Months: Yes Recreational Drug Type: Reports: Marijuana/Hashish Recreational Drug Use Frequency: Daily H&P Review of Systems - Review of Systems: Review Of Systems: See Below Reason Not Obtained: Limited by patient's current status. Exam - Exam Exam: See Below Reason Not Obtained: Limited by patient distress. Pt. seen via interactive vid eo. - Vital Signs Vital Signs: Last Vital Signs Temp 35.3 C L 05/12/20 15:55 Pulse 60 05/12/20 15:55 Resp 15 05/12/20 15:55 BP 126/91 H 05/12/20 15:55 Pulse Ox 99 05/12/20 15:55 Weight: 92.986 kg - Exam General: Severe Distress Physical Exam Comments:: Pt awake and alert. Able to give some history but limited by acute need to get up for the bathroom In distress. Per nursing: abdomen is firm with BS, not tender to the touch. - Patient Data Lab Results Last 24 hrs: Laboratory Results - last 24 hr 05/12/20 05/12/20 05/12/20 Range/Units 14:30 15:00 15:00 WBC 21.2 H* D (4.0-11.0) K/uL RBC 4.25 (3.80-5.80) M/uL Hgb 14.2 (11.5-16.5) g/dL Hct 41.4 (37.0-47.0) % MCV 97 H (76-96) fL MCH 33.4 H (27.0-32.0) pg MCHC 34.3 (31.0-35.0) g/dL RDW 13.1 (11.0-16.0) % Plt Count 262 (150-500) K/uL MPV 9.8 (6.0-10.0) fL Add Manual Diff Yes Neutrophils % (Manual) 95.0 H (45.0-70.0) % Lymphocytes % (Manual) 4.0 L (20.0-40.0) % Monocytes % (Manual) 1.0 L (3.0-10.0) % Platelet Estimate Adequate Sodium 140 (136-145) mmol/L Potassium 4.2 (3.5-5.1) mmol/L Chloride 105 (98-107) mmol/L Carbon Dioxide 20.7 L D (21.0-32.0) mmol/L Anion Gap 18.5 H (5.0-15.0) mmol/L BUN 14 D (8-26) mg/dL Creatinine 0.87 (0.55-1.02) mg/dL Est Cr Clr Drug Dosing 66.03 mL/min Estimated GFR (MDRD) > 60 (>60) MLS/MIN BUN/Creatinine Ratio 16.1 (6-25) Glucose 149 H D (74-100) mg/dL Lactic Acid (0.4-2.0) mmol/L Calcium 9.3 (8.5-10.1) mg/dL Total Bilirubin 0.3 (0.0-1.0) mg/dL AST 17 (15-37) U/L ALT 23 (12-78) U/L Alkaline Phosphatase 78 (46-116) U/L Total Protein 7.9 (6.4-8.2) g/dL Albumin 3.6 (3.4-5.0) g/dL Globulin 4.3 H (2.2-4.2) g/dL Albumin/Globulin Ratio 0.8 (0.8-2.0) COVID-19 (ALEX) Negative 05/12/20 Range/Units 15:00 WBC (4.0-11.0) K/uL RBC (3.80-5.80) M/uL Hgb (11.5-16.5) g/dL Hct (37.0-47.0) % MCV (76-96) fL MCH (27.0-32.0) pg MCHC (31.0-35.0) g/dL RDW (11.0-16.0) % Plt Count (150-500) K/uL MPV (6.0-10.0) fL Add Manual Diff Neutrophils % (Manual) (45.0-70.0) % Lymphocytes % (Manual) (20.0-40.0) % Monocytes % (Manual) (3.0-10.0) % Platelet Estimate Sodium (136-145) mmol/L Potassium (3.5-5.1) mmol/L Chloride (98-107) mmol/L Carbon Dioxide (21.0-32.0) mmol/L Anion Gap (5.0-15.0) mmol/L BUN (8-26) mg/dL Creatinine (0.55-1.02) mg/dL Est Cr Clr Drug Dosing mL/min Estimated GFR (MDRD) (>60) MLS/MIN BUN/Creatinine Ratio (6-25) Glucose (74-100) mg/dL Lactic Acid 2.1 H (0.4-2.0) mmol/L Calcium (8.5-10.1) mg/dL Total Bilirubin (0.0-1.0) mg/dL AST (15-37) U/L ALT (12-78) U/L Alkaline Phosphatase (46-116) U/L Total Protein (6.4-8.2) g/dL Albumin (3.4-5.0) g/dL Globulin (2.2-4.2) g/dL Albumin/Globulin Ratio (0.8-2.0) COVID-19 (ALEX) Result Diagrams: 05/12/20 15:00 05/12/20 15:00 Sepsis Event Note - Evaluation Sepsis Screening Result: No Definite Risk - Focused Exam Vital Signs: Vital Signs Temp Pulse Resp BP Pulse Ox 05/12/20 15:55 35.3 C L 60 15 126/91 H 99 05/12/20 15:19 60 22 H 139/71 100 05/12/20 15:13 73 20 143/62 H 05/12/20 15:09 63 18 126/93 H 100 05/12/20 15:08 63 18 139/92 H 100 05/12/20 14:28 36.3 C 59 L 20 168/97 H 100 05/12/20 14:27 36.3 C 59 L 18 168/97 H 100 - Problem List (1) Gastroenteritis Status: Acute (2) Depression with anxiety Status: Chronic Problem List Initiated/Reviewed/Updated: Yes Orders Last 24hrs: Active Orders 24 hr Category Date Time Status Admission Status [Patient Status] [ADT] Routine ADT 05/12/20 15:48 Active Patient Status [ADT] Routine ADT 05/12/20 16:41 Ordered Ambulate [RC] ASDIRECTED Care 05/12/20 16:40 Ordered Blood Glucose Check, Bedside [RC] BIDMEALS Care 05/12/20 16:40 Ordered Diabetes Education [RC] Click to Edit Care 05/12/20 16:44 Ordered Height and Weight [RC] DAILY Care 05/12/20 16:40 Ordered Intake and Output [RC] QSHIFT Care 05/12/20 16:41 Ordered Oxygen Therapy [RC] PRN Care 05/12/20 16:41 Ordered Up ad Caterina [RC] ASDIRECTED Care 05/12/20 16:40 Ordered VTE/DVT Education [RC] Per Unit Routine Care 05/12/20 16:41 Ordered Vital Signs [RC] Q4H Care 05/12/20 16:41 Ordered Clear Liquid Diet [DIET] Diet 05/12/20 Dinner Ordered BASIC METABOLIC PANEL,BMP [CHEM] AM Lab 05/13/20 05:11 Ordered CBC WITH AUTO DIFF [HEME] AM Lab 05/13/20 05:11 Ordered CLOSTRIDIUM DIFFICILE BY PCR [] Stat Lab 05/12/20 15:54 Ordered CULTURE BLOOD [BC] Stat Lab 05/12/20 14:55 Received CULTURE BLOOD [BC] Stat Lab 05/12/20 15:50 Received CULTURE BLOOD [BC] Stat Lab 05/12/20 16:01 Ordered CULTURE BLOOD [BC] Stat Lab 05/12/20 16:02 Ordered CULTURE MRSA SURVEY [] Stat Lab 05/12/20 16:23 Received MAGNESIUM [CHEM] AM Lab 05/13/20 05:11 Ordered PHOSPHORUS [CHEM] AM Lab 05/13/20 05:11 Ordered STOOL CULTURE Urgent Lab 05/12/20 15:45 Ordered URINALYSIS W/MICROSCOPIC [UA W/MICROSCOPIC] [URIN] Stat Lab 05/12/20 15:57 Ordered ARIPiprazole [Abilify] Med 05/13/20 08:00 Ordered 0.5 mg PO DAILY Acetaminophen [TylenoL] Med 05/12/20 16:40 Ordered 650 mg PO Q4H PRN Acyclovir [Zovirax 5% Oint] Med 05/12/20 16:47 Ordered 1 applic TOP DAILY PRN Aspirin Med 05/13/20 08:00 Ordered 81 mg PO DAILY ClonazePAM [KlonoPIN] Med 05/12/20 20:00 Ordered 0.5 mg PO TID FLUoxetine [PROzac] Med 05/13/20 08:00 Ordered 60 mg PO DAILY HYDROmorphone [Dilaudid] Med 05/12/20 16:46 Ordered 0.4 mg IVPUSH Q3H PRN LORazepam [Ativan] Med 05/12/20 16:40 Ordered 0.5 mg IV Q8H PRN Lactated Ringers @ 125 MLS/HR(1000ml) Med 05/12/20 16:45 Ordered Lactated Ringers [Ringers, Lactated] 1,000 ml IV ASDIRECTED Levofloxacin/Dextrose 5%-Water [Levaquin in D5W 500 MG/ Med 05/12/20 16:00 Active 100 ML] 500 mg Premix Bag 1 bag IV Q24H Loperamide [Imodium] Med 05/12/20 14:57 Active 2 mg PO ASDIRECTED PRN Ondansetron [Zofran] Med 05/12/20 16:40 Ordered 8 mg IV Q4H PRN Pantoprazole [ProTONIX IV] Med 05/12/20 16:45 Ordered 40 mg IV Q12H Sodium Chloride 0.9% [Saline Flush] Med 05/12/20 14:35 Active 10 ml FLUSH ASDIRECTED PRN metroNIDAZOLE/Normal Saline [Flagyl 500 MG in NS 100 ML Med 05/12/20 16:45 Ordered ] 500 mg Premix Bag 1 bag IV Q8H risperiDONE [risperiDONE] Med 05/13/20 08:00 Ordered 0.5 mg PO DAILY Glucose Management Sub Q Reflex [OM.PC] Click to Edit Oth 05/12/20 16:40 Ordered Isolation [COMM] Stat Oth 05/12/20 15:47 Active Peripheral IV Insertion Adult [OM.PC] Routine Oth 05/12/20 14:35 Ordered Resuscitation Status Routine Resus Stat 05/12/20 16:40 Ordered Medication Orders Acetaminophen (Tylenol) 650 mg PO Q4H PRN PRN Reason: Pain (Mild 1-3)/fever Acyclovir (Zovirax 5% Oint) gm TOP DAILY PRN PRN Reason: Rash Aripiprazole (Abilify) 0.5 mg PO DAILY ROMAN Aspirin (Aspirin) 81 mg PO DAILY ROMAN Clonazepam (Klonopin) 0.5 mg PO TID ROMAN Fluoxetine HCl (Prozac) 60 mg PO DAILY ROMAN Hydromorphone HCl (Dilaudid) 0.4 mg IVPUSH Q3H PRN PRN Reason: Abdominal Pain Levofloxacin/Dextrose 500 mg/ (Premix) 100 mls @ 100 mls/hr IV Q24H [facility] Lactated Ringer's (Ringers, Lactated) 1,000 mls @ 125 mls/hr IV ASDIRECTED ROMAN Metronidazole 500 mg/ Premix 100 mls @ 100 mls/hr IV Q8H ROMAN Loperamide HCl (Imodium) 2 mg PO ASDIRECTED PRN PRN Reason: Diarrhea Last Admin: 05/12/20 15:17 Dose: 2 mg Documented by: BERNADINE Lorazepam (Ativan) 0.5 mg IV Q8H PRN PRN Reason: Nausea/Vomiting Non-Formulary Medication (Risperidone [Risperidone]) 0.5 mg PO DAILY [facility] Ondansetron HCl (Zofran) 8 mg IV Q4H PRN PRN Reason: Nausea/Vomiting Pantoprazole Sodium (Protonix Iv) 40 mg IV Q12H [facility] Sodium Chloride (Saline Flush) 10 ml FLUSH ASDIRECTED PRN PRN Reason: Keep Vein Open Assessment/Plan Comment:: 1. Agree with aggressive volume resuscitation as you are doing. 2. Add Flagyl to cover for anaerobes 3. If pain persists and nausea cannot be under control, consider CT scan tonight. Pt. does have h/o hernia and may need to exclude incarceration. 4. Add Zofran. 5. Reviewed home meds. 6. Hold LIZETTE-I, Cholesterol med but restart meds for anxiety and depression 7. Check labs in AM--BMP, MAG, Phos and replace as indicated.
[2020-05-12] MEDS: Pantoprazole 40 MG Vial IV SCH (17:24)
[2020-05-12] MEDS: LORazepam 2 MG/ML SDV IV PRN (18:05)
[2020-05-12] MEDS: metroNIDAZOLE/Normal Saline 500 MG in Premix Bag 1 BAG IV SCH (18:13)
[2020-05-12] MEDS: CLONAZEPAM 0.5 MG PO SCH (19:23)
[2020-05-12] MEDS: Ondansetron 4 MG/2 ML SDV IV PRN ×2 (19:27→23:39)
[2020-05-12] MEDS ORDERED: LORazepam 2 MG/ML SDV IVPUSH ONE (19:59)
[2020-05-13] MEDS ORDERED: metroNIDAZOLE/Normal Saline 100 ML ONE (02:07)
[2020-05-13] MEDS: metroNIDAZOLE/Normal Saline 500 MG in Premix Bag 1 BAG IV SCH (02:11)
[2020-05-13] MEDS: LORazepam 2 MG/ML SDV IV PRN (02:11)
[2020-05-13] MEDS: Pantoprazole 40 MG Vial IV SCH ×2 (05:34→18:05)
[2020-05-13] MEDS: CLONAZEPAM 0.5 MG PO SCH ×3 (07:56→19:57)
[2020-05-13] MEDS ORDERED: FLUoxetine 20 MG Cap PO SCH (08:00)
[2020-05-13] MEDS ORDERED: RISPERIDONE 0.5 MG PO SCH ×2 (08:00→20:00)
--- NOTE | 2020-05-13 08:48 | PCM.PN ---
- General Info Date of Service: 05/13/20 Subjective Update: This is a 59yo F with improved symptoms. She notes her appetite has improved. She continues to have some tenderness of the abdomen. Denies any fever or chills. She felt that it could have been some salsa she bought at the [employer]. - Review of Systems General: Reports: Weakness HEENT: Reports: No Symptoms Pulmonary: Reports: No Symptoms Cardiovascular: Reports: No Symptoms Gastrointestinal: Reports: Abdominal Pain Genitourinary: Reports: No Symptoms Musculoskeletal: Reports: No Symptoms Skin: Reports: No Symptoms Neurological: Reports: No Symptoms Psychiatric: Reports: No Symptoms - Patient Data Vitals - Most Recent: Last Vital Signs Temp 37.3 C 05/13/20 08:00 Pulse 70 05/13/20 08:00 Resp 20 05/13/20 08:00 BP 121/79 05/13/20 08:00 Pulse Ox 97 05/13/20 08:00 Weight - Most Recent: 92.986 kg Lab Results Last 24 Hours: Laboratory Results - last 24 hr 05/12/20 05/12/20 05/12/20 Range/Units 14:30 15:00 15:00 WBC 21.2 H* D (4.0-11.0) K/uL RBC 4.25 (3.80-5.80) M/uL Hgb 14.2 (11.5-16.5) g/dL Hct 41.4 (37.0-47.0) % MCV 97 H (76-96) fL MCH 33.4 H (27.0-32.0) pg MCHC 34.3 (31.0-35.0) g/dL RDW 13.1 (11.0-16.0) % Plt Count 262 (150-500) K/uL MPV 9.8 (6.0-10.0) fL Neut % (Auto) (45.0-70.0) % Lymph % (Auto) (20.0-40.0) % [place] % (Auto) (3.0-10.0) % Eos % (Auto) (1.0-5.0) % Baso % (Auto) (0.0-0.5) % Neut # (Auto) (2.00-7.50) K/uL Lymph # (Auto) (1.50-4.00) K/uL [place] # (Auto) (0.20-0.80) K/uL Eos # (Auto) (0.04-0.40) K/uL Baso # (Auto) (0.02-0.10) K/uL Add Manual Diff Yes Neutrophils % (Manual) 95.0 H (45.0-70.0) % Lymphocytes % (Manual) 4.0 L (20.0-40.0) % Monocytes % (Manual) 1.0 L (3.0-10.0) % Platelet Estimate Adequate Sodium 140 (136-145) mmol/L Potassium 4.2 (3.5-5.1) mmol/L Chloride 105 (98-107) mmol/L Carbon Dioxide 20.7 L D (21.0-32.0) mmol/L Anion Gap 18.5 H (5.0-15.0) mmol/L BUN 14 D (8-26) mg/dL Creatinine 0.87 (0.55-1.02) mg/dL Est Cr Clr Drug Dosing 66.03 mL/min Estimated GFR (MDRD) > 60 (>60) MLS/MIN BUN/Creatinine Ratio 16.1 (6-25) Glucose 149 H D (74-100) mg/dL Lactic Acid (0.4-2.0) mmol/L Calcium 9.3 (8.5-10.1) mg/dL Phosphorus (2.5-4.9) mg/dL Magnesium (1.8-2.4) mg/dL Total Bilirubin 0.3 (0.0-1.0) mg/dL AST 17 (15-37) U/L ALT 23 (12-78) U/L Alkaline Phosphatase 78 (46-116) U/L Total Protein 7.9 (6.4-8.2) g/dL Albumin 3.6 (3.4-5.0) g/dL Globulin 4.3 H (2.2-4.2) g/dL Albumin/Globulin Ratio 0.8 (0.8-2.0) Urine Color Urine Appearance (CLEAR) Urine pH (5.0-8.0) Ur Specific [place] (1.003-1.030) Urine Protein (NEGATIVE) mg/dL Urine Glucose (UA) (NEGATIVE) mg/dL Urine Ketones (NEGATIVE) mg/dL Urine Occult Blood (NEGATIVE) Urine Nitrite (NEGATIVE) Urine Bilirubin (NEGATIVE) Urine Urobilinogen (0.2-1.0) E.U./dL Ur Leukocyte Esterase (NEGATIVE) Urine RBC /HPF Urine WBC /HPF Ur Epithelial Cells /HPF Amorphous Sediment /HPF Urine Bacteria /HPF COVID-19 ([facility]) Negative 05/12/20 05/13/20 05/13/20 Range/Units 15:00 05:00 07:05 WBC 16.2 H D (4.0-11.0) K/uL RBC 3.45 L (3.80-5.80) M/uL Hgb 11.6 (11.5-16.5) g/dL Hct 33.6 L (37.0-47.0) % MCV 97 H (76-96) fL MCH 33.6 H (27.0-32.0) pg MCHC 34.5 (31.0-35.0) g/dL RDW 13.0 (11.0-16.0) % Plt Count 235 (150-500) K/uL MPV 10.0 (6.0-10.0) fL Neut % (Auto) 88.3 H (45.0-70.0) % Lymph % (Auto) 5.9 L (20.0-40.0) % [place] % (Auto) 5.7 (3.0-10.0) % Eos % (Auto) 0.0 L (1.0-5.0) % Baso % (Auto) 0.1 (0.0-0.5) % Neut # (Auto) 14.32 H (2.00-7.50) K/uL Lymph # (Auto) 0.96 L (1.50-4.00) K/uL [place] # (Auto) 0.93 H (0.20-0.80) K/uL Eos # (Auto) 0.00 L (0.04-0.40) K/uL Baso # (Auto) 0.01 L (0.02-0.10) K/uL Add Manual Diff Neutrophils % (Manual) (45.0-70.0) % Lymphocytes % (Manual) (20.0-40.0) % Monocytes % (Manual) (3.0-10.0) % Platelet Estimate Sodium (136-145) mmol/L Potassium (3.5-5.1) mmol/L Chloride (98-107) mmol/L Carbon Dioxide (21.0-32.0) mmol/L Anion Gap (5.0-15.0) mmol/L BUN (8-26) mg/dL Creatinine (0.55-1.02) mg/dL Est Cr Clr Drug Dosing mL/min Estimated GFR (MDRD) (>60) MLS/MIN BUN/Creatinine Ratio (6-25) Glucose (74-100) mg/dL Lactic Acid 2.1 H (0.4-2.0) mmol/L Calcium (8.5-10.1) mg/dL Phosphorus (2.5-4.9) mg/dL Magnesium (1.8-2.4) mg/dL Total Bilirubin (0.0-1.0) mg/dL AST (15-37) U/L ALT (12-78) U/L Alkaline Phosphatase (46-116) U/L Total Protein (6.4-8.2) g/dL Albumin (3.4-5.0) g/dL Globulin (2.2-4.2) g/dL Albumin/Globulin Ratio (0.8-2.0) Urine Color Yellow Urine Appearance Cloudy (CLEAR) Urine pH 5.5 (5.0-8.0) Ur Specific [place] >= 1.030 (1.003-1.030) Urine Protein Negative (NEGATIVE) mg/dL Urine Glucose (UA) Negative (NEGATIVE) mg/dL Urine Ketones Negative (NEGATIVE) mg/dL Urine Occult Blood Moderate H (NEGATIVE) Urine Nitrite Negative (NEGATIVE) Urine Bilirubin Negative (NEGATIVE) Urine Urobilinogen 0.2 (0.2-1.0) E.U./dL Ur Leukocyte Esterase Trace H (NEGATIVE) Urine RBC 5-10 H /HPF Urine WBC 0-5 H /HPF Ur Epithelial Cells Few /HPF Amorphous Sediment Many /HPF Urine Bacteria Few /HPF COVID-19 ([facility]EX) 05/13/20 Range/Units 07:05 WBC (4.0-11.0) K/uL RBC (3.80-5.80) M/uL Hgb (11.5-16.5) g/dL Hct (37.0-47.0) % MCV (76-96) fL MCH (27.0-32.0) pg MCHC (31.0-35.0) g/dL RDW (11.0-16.0) % Plt Count (150-500) K/uL MPV (6.0-10.0) fL Neut % (Auto) (45.0-70.0) % Lymph % (Auto) (20.0-40.0) % [place] % (Auto) (3.0-10.0) % Eos % (Auto) (1.0-5.0) % Baso % (Auto) (0.0-0.5) % Neut # (Auto) (2.00-7.50) K/uL Lymph # (Auto) (1.50-4.00) K/uL [place] # (Auto) (0.20-0.80) K/uL Eos # (Auto) (0.04-0.40) K/uL Baso # (Auto) (0.02-0.10) K/uL Add Manual Diff Neutrophils % (Manual) (45.0-70.0) % Lymphocytes % (Manual) (20.0-40.0) % Monocytes % (Manual) (3.0-10.0) % Platelet Estimate Sodium 142 (136-145) mmol/L Potassium 3.4 L (3.5-5.1) mmol/L Chloride 107 (98-107) mmol/L Carbon Dioxide 22.7 (21.0-32.0) mmol/L Anion Gap 15.7 H (5.0-15.0) mmol/L BUN 12 (8-26) mg/dL Creatinine 0.89 (0.55-1.02) mg/dL Est Cr Clr Drug Dosing 64.55 mL/min Estimated GFR (MDRD) > 60 (>60) MLS/MIN BUN/Creatinine Ratio 13.5 (6-25) Glucose 133 H (74-100) mg/dL Lactic Acid (0.4-2.0) mmol/L Calcium 8.4 L (8.5-10.1) mg/dL Phosphorus 3.4 (2.5-4.9) mg/dL Magnesium 1.5 L (1.8-2.4) mg/dL Total Bilirubin (0.0-1.0) mg/dL AST (15-37) U/L ALT (12-78) U/L Alkaline Phosphatase (46-116) U/L Total Protein (6.4-8.2) g/dL Albumin (3.4-5.0) g/dL Globulin (2.2-4.2) g/dL Albumin/Globulin Ratio (0.8-2.0) Urine Color Urine Appearance (CLEAR) Urine pH (5.0-8.0) Ur Specific [place] (1.003-1.030) Urine Protein (NEGATIVE) mg/dL Urine Glucose (UA) (NEGATIVE) mg/dL Urine Ketones (NEGATIVE) mg/dL Urine Occult Blood (NEGATIVE) Urine Nitrite (NEGATIVE) Urine Bilirubin (NEGATIVE) Urine Urobilinogen (0.2-1.0) E.U./dL Ur Leukocyte Esterase (NEGATIVE) Urine RBC /HPF Urine WBC /HPF Ur Epithelial Cells /HPF Amorphous Sediment /HPF Urine Bacteria /HPF COVID-19 ([facility]) Abdirizak Results Last 24 Hours: Microbiology 05/12/20 15:54 Clostridioides difficile (PCR) - Final Stool / Feces Med Orders - Current: Current Medications Acetaminophen (Tylenol) 650 mg PO Q4H PRN PRN Reason: Pain (Mild 1-3)/fever Acyclovir (Zovirax 5% Oint) gm TOP DAILY PRN PRN Reason: Rash Aripiprazole (Abilify) 0.5 mg PO DAILY [facility] Aspirin (Aspirin) 81 mg PO DAILY [facility] Clonazepam (Klonopin) 0.5 mg PO TID [facility] Last Admin: 05/13/20 07:56 Dose: 0.5 mg Documented by: Fluoxetine HCl (Prozac) 60 mg PO DAILY [facility] Hydromorphone HCl (Dilaudid) 0.4 mg IVPUSH Q3H PRN PRN Reason: Abdominal Pain Lactated Ringer's (Ringers, Lactated) 1,000 mls @ 125 mls/hr IV ASDIRECTED [facility] Last Admin: 05/12/20 19:37 Dose: 125 mls/hr Documented by: Metronidazole (Flagyl 500 Mg In Ns 100 Ml) 100 mls @ 200 mls/hr IV Q8H [facility] Levofloxacin/Dextrose (Levaquin In D5w 500 Mg/100 Ml) 100 mls @ 100 mls/hr IV DAILY@1700 [facility] Loperamide HCl (Imodium) 2 mg PO ASDIRECTED PRN PRN Reason: Diarrhea Last Admin: 05/12/20 15:17 Dose: 2 mg Documented by: Lorazepam (Ativan) 0.5 mg IV Q8H PRN PRN Reason: Nausea/Vomiting Last Admin: 05/13/20 02:11 Dose: 0.5 mg Documented by: Non-Formulary Medication (Risperidone [Risperidone]) 0.5 mg PO DAILY [facility] Ondansetron HCl (Zofran) 8 mg IV Q4H PRN PRN Reason: Nausea/Vomiting Last Admin: 05/12/20 23:39 Dose: 8 mg Documented by: Pantoprazole Sodium (Protonix Iv) 40 mg IV Q12H [facility] Last Admin: 05/13/20 05:34 Dose: 40 mg Documented by: Sodium Chloride (Saline Flush) 10 ml FLUSH ASDIRECTED PRN PRN Reason: Keep Vein Open Discontinued Medications Ceftriaxone Sodium (Rocephin) Confirm Administered Dose 1 gm .ROUTE .STStratio-MED ONE Stop: 05/12/20 15:43 Last Admin: 05/12/20 15:49 Dose: Not Given Documented by: Sodium Chloride (Normal Saline) 1,000 mls @ 999 mls/hr IV .BOLUS ONE Stop: 05/12/20 15:35 Last Admin: 05/12/20 14:42 Dose: 999 mls/hr Documented by: Ceftriaxone Sodium 1 gm/ (Sodium Chloride) 50 mls @ 100 mls/hr IV ONETIME ONE Stop: 05/12/20 16:06 Last Admin: 05/12/20 15:49 Dose: Not Given Documented by: Levofloxacin/Dextrose 500 mg/ (Premix) 100 mls @ 100 mls/hr IV Q24H [facility] Last Admin: 05/12/20 17:00 Dose: 100 mls/hr Documented by: Metronidazole 500 mg/ Premix 100 mls @ 100 mls/hr IV Q8H [facility] Last Admin: 05/13/20 02:11 Dose: 100 mls/hr Documented by: Metronidazole (Flagyl 500 Mg In Ns 100 Ml) Confirm Administered Dose 100 mls @ as directed .ROUTE .STK-MED ONE Stop: 05/13/20 02:08 Last Admin: 05/13/20 02:22 Dose: Not Given Documented by: Loperamide HCl (Imodium) Confirm Administered Dose 2 mg .ROUTE .STK-MED ONE Stop: 05/12/20 15:27 Last Admin: 05/12/20 15:49 Dose: Not Given Documented by: Lorazepam (Ativan) 1 mg IVPUSH ONETIME ONE Stop: 05/12/20 20:00 Last Admin: 05/12/20 20:00 Dose: 1 mg Documented by: Ondansetron HCl (Zofran) Confirm Administered Dose 4 mg .ROUTE .STK-MED ONE Stop: 05/12/20 15:05 Last Admin: 05/12/20 15:50 Dose: Not Given Documented by: Ondansetron HCl (Zofran) 4 mg IVPUSH ONETIME ONE Stop: 05/12/20 14:58 Last Admin: 05/12/20 14:58 Dose: 4 mg Documented by: Ondansetron HCl (Zofran) 4 mg IVPUSH ONETIME ONE Stop: 05/12/20 15:38 Last Admin: 05/12/20 15:48 Dose: 4 mg Documented by: Ondansetron HCl (Zofran) Confirm Administered Dose 4 mg .ROUTE .STK-MED ONE Stop: 05/12/20 15:47 Last Admin: 05/12/20 15:50 Dose: Not Given Documented by: - Exam General: Alert, Oriented, Cooperative HEENT: Pupils Equal, Pupils Reactive, EOMI Neck: Supple Lungs: Clear to Auscultation, Normal Respiratory Effort Cardiovascular: Regular Rate, Regular Rhythm GI/Abdominal Exam: Tender, Abnormal Bowel Sounds (increasing BS) Extremities: Normal Inspection Peripheral Pulses: 2+: Dorsalis Pedis (L), Dorsalis Pedis (R) Skin: Warm, Dry, Intact Neurological: No New Focal Deficit Psy/Mental Status: Alert, Normal Affect, Normal Mood Sepsis Event Note - Evaluation Sepsis Screening Result: No Definite Risk - Focused Exam Vital Signs: Vital Signs Temp Pulse Resp BP Pulse Ox 05/13/20 08:00 37.3 C 70 20 121/79 97 05/13/20 03:46 36.4 C 63 18 149/89 H 99 05/12/20 23:53 36.4 C 61 20 148/83 H 100 - Problem List & Annotations (1) Leukocytosis SNOMED Code(s): 454381492, 985565454 Code(s): D72.829 - ELEVATED WHITE BLOOD CELL COUNT, UNSPECIFIED Status: Acute Priority: High Current Visit: Yes (2) Sepsis SNOMED Code(s): 33975811 Code(s): A41.9 - SEPSIS, UNSPECIFIED ORGANISM Status: Acute Priority: High Current Visit: Yes (3) Metabolic acidosis SNOMED Code(s): 47822510 Code(s): E87.2 - ACIDOSIS Status: Acute Priority: High Current Visit: Yes (4) Lactic acidosis SNOMED Code(s): 54469736 Code(s): E87.2 - ACIDOSIS Status: Acute Priority: High Current Visit: Yes (5) Hypomagnesemia SNOMED Code(s): 430797932 Code(s): E83.42 - HYPOMAGNESEMIA Status: Acute Priority: High Current Visit: Yes (6) Hypokalemia SNOMED Code(s): 82379212 Code(s): E87.6 - HYPOKALEMIA Status: Acute Priority: High Current Visit: Yes (7) Cholelithiasis SNOMED Code(s): 216189832 Code(s): K80.20 - CALCULUS OF GALLBLADDER W/O CHOLECYSTITIS W/O OBSTRUCTION Status: Acute Priority: High Current Visit: Yes (8) Gastroenteritis SNOMED Code(s): 69192510 Code(s): K52.9 - NONINFECTIVE GASTROENTERITIS AND COLITIS, UNSPECIFIED Status: Acute Priority: High Current Visit: Yes - Problem List Review Problem List Initiated/Reviewed/Updated: Yes - My Orders Last 24 Hours: My Active Orders 05/13/20 08:47 CLOS DIFFICILE PCR W/REFLEX [RM] Stat GIARDIA LAMBLIA AG, EIA Stat - Plan Plan:: 1. Agree with aggressive volume resuscitation as you are doing. 2. Add Flagyl to cover for anaerobes 3. If pain persists and nausea cannot be under control, consider CT scan tonight. Pt. does have h/o hernia and may need to exclude incarceration. 4. Add Zofran. 5. Reviewed home meds. 6. Hold LIZETTE-I, Cholesterol med but restart meds for anxiety and depression 7. Check labs in AM--BMP, MAG, Phos and replace as indicated. 05/13/20 Continue hydration with potassium replenishment. -Continue current antibiotics. -Improved abdominal issues and appetite - CT results reviewed - Cholelithiasis -Home meds restarted -F/u labs in AM for continued Leukocytosis -Sepsis resolving -Metabolic acidosis resolved
[2020-05-13] MEDS: metroNIDAZOLE/Normal Saline 100 ML IV SCH ×2 (09:10→18:12)
[2020-05-13] MEDS ORDERED: Ibuprofen 800 MG Tab PO PRN (09:16)
--- NOTE | 2020-05-13 09:20 | CT ---
DATE OF SERVICE: 05/12/20 CLINICAL DATA: Abd pain. UNENHANCED ABDOMEN AND PELVIC CT: Multislice acquisition through the abdomen and pelvis without IV, but with oral contrast, was performed. No priors. The lung bases are clear. The unenhanced liver appears normal. There are small gallstones noted in the dependent gallbladder. No pericholecystic fluid. The spleen appears normal. The pancreas appears normal. The right and left adrenals appear normal. The right and left kidneys appear normal. No nephrocalcinosis or nephrolithiasis. No hydronephrosis or hydroureter. The bladder is partially fluid filled. It appears normal. The appendix is not dilated. No evidence of appendicitis. There is mild diverticulosis of the descending and sigmoid colon. No evidence of diverticulitis. No free air. No free fluid. No dilated loops of bowel. No adenopathy. No aortic aneurysm. There is slight anterolisthesis of L4 on L5. There is degenerative disk disease at multiple levels in the lower thoracic and lumbar spine. IMPRESSION: Cholelithiasis. Other findings as discussed above. [id number] [facility]
[2020-05-13] MEDS: Magnesium Oxide 400 MG Tab PO SCH ×2 (11:00→19:57)
[2020-05-13] MEDS: Aspirin 81 MG Tab.Chew PO SCH (12:03)
[2020-05-13] MEDS: Lisinopril 10 MG Tab PO SCH (12:03)
[2020-05-13] MEDS: FLUOXETINE 40MG CAPSULE PO SCH (12:04)
[2020-05-13] MEDS ORDERED: Levofloxacin/Dextrose 5%-Water 100 ML IV SCH (17:00)
[2020-05-13] MEDS ORDERED: Simvastatin 20 MG Tab PO SCH (20:00)
[2020-05-14] MEDS: metroNIDAZOLE/Normal Saline 100 ML IV SCH (01:37)
[2020-05-14] MEDS: LORazepam 2 MG/ML SDV IV PRN (05:30)
[2020-05-14] MEDS: Pantoprazole 40 MG Vial IV SCH (05:30)
[2020-05-14] MEDS ORDERED: Omeprazole 20 MG Cap.CR PO SCH (07:00)
[2020-05-14] MEDS: CLONAZEPAM 0.5 MG PO SCH (07:36)
[2020-05-14] MEDS: FLUOXETINE 40MG CAPSULE PO SCH (07:37)
[2020-05-14] MEDS: Magnesium Oxide 400 MG Tab PO SCH (07:38)
[2020-05-14] MEDS: Aspirin 81 MG Tab.Chew PO SCH (07:38)
[2020-05-14] MEDS: Lisinopril 10 MG Tab PO SCH (07:38)
[2020-05-14 07:40] VITALS: BP 119/75
[2020-05-14 07:43] VITALS: PULSE 60
[2020-05-14] MEDS ORDERED: FLUoxetine 20 MG Cap PO SCH (08:00)
--- NOTE | 2020-05-14 09:48 | PCM.DCSUM1 ---
Discharge Summary - Discharge Data Discharge Date: 05/14/20 Discharge Disposition: Home, Self-Care 01 Condition: Good - Referral to Home Health Primary Care Physician: PCP None - Discharge Diagnosis/Problem(s) (1) Leukocytosis SNOMED Code(s): 609789844, 008371630 ICD Code: D72.829 - ELEVATED WHITE BLOOD CELL COUNT, UNSPECIFIED Status: Acute Priority: High Current Visit: Yes (2) Sepsis SNOMED Code(s): 46768512 ICD Code: A41.9 - SEPSIS, UNSPECIFIED ORGANISM Status: Acute Priority: High Current Visit: Yes (3) Metabolic acidosis SNOMED Code(s): 82455518 ICD Code: E87.2 - ACIDOSIS Status: Acute Priority: High Current Visit: Yes (4) Lactic acidosis SNOMED Code(s): 80691193 ICD Code: E87.2 - ACIDOSIS Status: Acute Priority: High Current Visit: Yes (5) Hypomagnesemia SNOMED Code(s): 850550380 ICD Code: E83.42 - HYPOMAGNESEMIA Status: Acute Priority: High Current Visit: Yes (6) Hypokalemia SNOMED Code(s): 53250187 ICD Code: E87.6 - HYPOKALEMIA Status: Acute Priority: High Current Visit: Yes (7) Cholelithiasis SNOMED Code(s): 272810650 ICD Code: K80.20 - CALCULUS OF GALLBLADDER W/O CHOLECYSTITIS W/O OBSTRUCTION Status: Acute Priority: High Current Visit: Yes (8) Gastroenteritis SNOMED Code(s): 27997060 ICD Code: K52.9 - NONINFECTIVE GASTROENTERITIS AND COLITIS, UNSPECIFIED Status: Acute Priority: High Current Visit: Yes - Discharge Plan *PRESCRIPTION DRUG MONITORING PROGRAM REVIEWED*: Not Applicable *COPY OF PRESCRIPTION DRUG MONITORING REPORT IN PATIENT ARIELLE: Not Applicable Prescriptions/Med Rec: Levofloxacin 750 mg PO DAILY #10 tablet Home Medications: Home Meds FLUoxetine HCl [Fluoxetine HCl] 60 mg PO DAILY 03/08/15 [History] Lisinopril 10 mg PO DAILY 03/08/15 [History] Simvastatin 20 mg PO QPM 03/08/15 [History] clonazePAM [Clonazepam] 0.5 mg PO TID 03/08/15 [History] Ibuprofen 800 mg PO TID PRN 03/09/15 [History] Omeprazole 20 mg PO ACBREAKFAST 03/09/15 [History] Aspirin [Yana Chewable Aspirin] 81 mg PO DAILY 02/04/18 [History] Acyclovir [Zovirax 5% Oint] 1 applic TOP DAILY PRN 03/15/18 [History] risperiDONE 0.5 mg PO DAILY 05/12/20 [History] Acetaminophen [Tylenol] 650 mg PO Q4H PRN tablet 05/14/20 [Rx] Levofloxacin 750 mg PO DAILY #10 tablet 05/14/20 [Rx] Magnesium Oxide 400 mg PO BID tablet 05/14/20 [Rx] Non-Formulary Medication [NF Drug] 1 each PO DAILY each 05/14/20 [Rx] Patient Handouts: Viral Gastroenteritis, Adult Referrals: PCP,None [Primary Care Provider] - - Discharge Summary/Plan Comment DC Time >30 min.: No - Patient Data Vitals - Most Recent: Last Vital Signs Temp 36.8 C 05/14/20 07:42 Pulse 60 05/14/20 07:42 Resp 16 05/14/20 07:42 BP 119/75 05/14/20 07:42 Pulse Ox 99 05/14/20 07:42 Weight - Most Recent: 92.986 kg Lab Results - Last 24 hrs: Laboratory Results - last 24 hr 05/14/20 Range/Units 08:45 WBC 12.3 H D (4.0-11.0) K/uL RBC 3.56 L (3.80-5.80) M/uL Hgb 12.0 (11.5-16.5) g/dL Hct 35.8 L (37.0-47.0) % MCV 101 H (76-96) fL MCH 33.7 H (27.0-32.0) pg MCHC 33.5 (31.0-35.0) g/dL RDW 13.5 (11.0-16.0) % Plt Count 193 (150-500) K/uL MPV 9.8 (6.0-10.0) fL Neut % (Auto) 79.8 H (45.0-70.0) % Lymph % (Auto) 13.2 L (20.0-40.0) % [place] % (Auto) 6.0 (3.0-10.0) % Eos % (Auto) 0.8 L (1.0-5.0) % Baso % (Auto) 0.2 (0.0-0.5) % Neut # (Auto) 9.82 H (2.00-7.50) K/uL Lymph # (Auto) 1.62 (1.50-4.00) K/uL [place] # (Auto) 0.74 (0.20-0.80) K/uL Eos # (Auto) 0.10 (0.04-0.40) K/uL Baso # (Auto) 0.02 (0.02-0.10) K/uL GABRIEL Results - Last 24 hrs: Microbiology 05/12/20 15:50 Aerobic Blood Culture - Preliminary Blood NO GROWTH AFTER 1 DAY Anaerobic Blood Culture - Preliminary NO GROWTH AFTER 1 DAY 05/12/20 14:55 Aerobic Blood Culture - Preliminary Blood NO GROWTH AFTER 1 DAY Anaerobic Blood Culture - Preliminary NO GROWTH AFTER 1 DAY 05/12/20 16:23 MRSA Surveillance Culture - Final Nares, Left NO MRSA ISOLATED Med Orders - Current: Current Medications Acetaminophen (Tylenol) 650 mg PO Q4H PRN PRN Reason: Pain (Mild 1-3)/fever Acyclovir (Zovirax 5% Oint) gm TOP DAILY PRN PRN Reason: Rash Aspirin (Aspirin) 81 mg PO DAILY [facility] Last Admin: 05/14/20 07:38 Dose: 81 mg Documented by: Clonazepam (Klonopin) 0.5 mg PO TID [facility] Last Admin: 05/14/20 07:36 Dose: 0.5 mg Documented by: Fluoxetine HCl (Prozac) 20 mg PO DAILY [facility] Hydromorphone HCl (Dilaudid) 0.4 mg IVPUSH Q3H PRN PRN Reason: Abdominal Pain Lactated Ringer's (Ringers, Lactated) 1,000 mls @ 125 mls/hr IV ASDIRECTED [facility] Last Admin: 05/12/20 19:37 Dose: 125 mls/hr Documented by: Metronidazole (Flagyl 500 Mg In Ns 100 Ml) 100 mls @ 200 mls/hr IV Q8H [facility] Last Admin: 05/14/20 01:37 Dose: 200 mls/hr Documented by: Levofloxacin/Dextrose (Levaquin In D5w 500 Mg/100 Ml) 100 mls @ 100 mls/hr IV DAILY@1700 [facility] Last Admin: 05/13/20 16:53 Dose: 100 mls/hr Documented by: Ibuprofen (Motrin) 800 mg PO TID PRN PRN Reason: Pain Lisinopril (Prinivil) 10 mg PO DAILY [facility] Last Admin: 05/14/20 07:38 Dose: 10 mg Documented by: Loperamide HCl (Imodium) 2 mg PO ASDIRECTED PRN PRN Reason: Diarrhea Last Admin: 05/12/20 15:17 Dose: 2 mg Documented by: Lorazepam (Ativan) 0.5 mg IV Q8H PRN PRN Reason: Nausea/Vomiting Last Admin: 05/14/20 05:30 Dose: 0.5 mg Documented by: Magnesium Oxide (Magnesium Oxide) 400 mg PO BID [facility] Last Admin: 05/14/20 07:38 Dose: 400 mg Documented by: Fluoxetine 40mg (Capsule) 1 each PO DAILY [facility] Last Admin: 05/14/20 07:37 Dose: 1 each Documented by: Non-Formulary Medication (Risperidone [Risperidone]) 0.5 mg PO BEDTIME [facility] Last Admin: 05/13/20 19:57 Dose: 0.5 mg Documented by: Omeprazole (Omeprazole) 20 mg PO ACBREAKFAST [facility] Last Admin: 05/14/20 07:37 Dose: 20 mg Documented by: Ondansetron HCl (Zofran) 8 mg IV Q4H PRN PRN Reason: Nausea/Vomiting Last Admin: 05/12/20 23:39 Dose: 8 mg Documented by: Pantoprazole Sodium (Protonix Iv) 40 mg IV Q12H [facility] Last Admin: 05/14/20 05:30 Dose: 40 mg Documented by: Simvastatin (Zocor) 20 mg PO QPM [facility] Last Admin: 05/13/20 19:56 Dose: 20 mg Documented by: Sodium Chloride (Saline Flush) 10 ml FLUSH ASDIRECTED PRN PRN Reason: Keep Vein Open Discontinued Medications Aripiprazole (Abilify) 0.5 mg PO DAILY [facility] Ceftriaxone Sodium (Rocephin) Confirm Administered Dose 1 gm .ROUTE .STK-MED ONE Stop: 05/12/20 15:43 Last Admin: 05/12/20 15:49 Dose: Not Given Documented by: Sodium Chloride (Normal Saline) 1,000 mls @ 999 mls/hr IV .BOLUS ONE Stop: 05/12/20 15:35 Last Admin: 05/12/20 14:42 Dose: 999 mls/hr Documented by: Ceftriaxone Sodium 1 gm/ (Sodium Chloride) 50 mls @ 100 mls/hr IV ONETIME ONE Stop: 05/12/20 16:06 Last Admin: 05/12/20 15:49 Dose: Not Given Documented by: Levofloxacin/Dextrose 500 mg/ (Premix) 100 mls @ 100 mls/hr IV Q24H [facility] Last Admin: 05/12/20 17:00 Dose: 100 mls/hr Documented by: Metronidazole 500 mg/ Premix 100 mls @ 100 mls/hr IV Q8H [facility] Last Admin: 05/13/20 02:11 Dose: 100 mls/hr Documented by: Metronidazole (Flagyl 500 Mg In Ns 100 Ml) Confirm Administered Dose 100 mls @ as directed .ROUTE .STK-MED ONE Stop: 05/13/20 02:08 Last Admin: 05/13/20 02:22 Dose: Not Given Documented by: Potassium Chloride 30 meq/ (Sodium Chloride) 515 mls @ 125 mls/hr IV ONETIME [facility] Stop: 05/13/20 16:00 Loperamide HCl (Imodium) Confirm Administered Dose 2 mg .ROUTE .STK-MED ONE Stop: 05/12/20 15:27 Last Admin: 05/12/20 15:49 Dose: Not Given Documented by: Lorazepam (Ativan) 1 mg IVPUSH ONETIME ONE Stop: 05/12/20 20:00 Last Admin: 05/12/20 20:00 Dose: 1 mg Documented by: Non-Formulary Medication (Risperidone [Risperidone]) 0.5 mg PO DAILY [facility] Ondansetron HCl (Zofran) Confirm Administered Dose 4 mg .ROUTE .STK-MED ONE Stop: 05/12/20 15:05 Last Admin: 05/12/20 15:50 Dose: Not Given Documented by: Ondansetron HCl (Zofran) 4 mg IVPUSH ONETIME ONE Stop: 05/12/20 14:58 Last Admin: 05/12/20 14:58 Dose: 4 mg Documented by: Ondansetron HCl (Zofran) 4 mg IVPUSH ONETIME ONE Stop: 05/12/20 15:38 Last Admin: 05/12/20 15:48 Dose: 4 mg Documented by: Ondansetron HCl (Zofran) Confirm Administered Dose 4 mg .ROUTE .[facility] ONE Stop: 05/12/20 15:47 Last Admin: 05/12/20 15:50 Dose: Not Given Documented by:
== END 2020-05-14 10:15 | disposition home or self-care (01) ==
LOC: LB.ED 14:21 → LB.MS 15:48
PROVIDERS: ADMIT Physician Assistant Surgical; ATTEND Physician Assistant Surgical
DX: A41.9 Sepsis, unspecified organism (principal); K52.9 Noninfective gastroenteritis and colitis, unspecified; D72.829 Elevated white blood cell count, unspecified; E87.2 Acidosis; E83.42 Hypomagnesemia; E87.6 Hypokalemia; K80.20 Calculus of gallbladder without cholecystitis without obstruction; E78.00 Pure hypercholesterolemia, unspecified; I10 Essential (primary) hypertension; K21.9 Gastro-esophageal reflux disease without esophagitis; F41.9 Anxiety disorder, unspecified; F32.9 Major depressive disorder, single episode, unspecified; F43.10 Post-traumatic stress disorder, unspecified; Z88.0 Allergy status to penicillin; Z20.828 Contact with and (suspected) exposure to other viral communicable diseases; Z79.899 Other long term (current) drug therapy; Z79.82 Long term (current) use of aspirin
CPT/HCPCS: 36415; 74176; 80048; 80053; 81001; 83605; 83735; 84100; 85025; 87040; 87045; 87046; 87329; 87427; 87493; 96361; 96365; 96366; 96367; 96375; 96376; 99285; A9270; C9113; G0378; J1956; J2060; J2405; J3490; J7030; J7120; U0002; 96374

== ENCOUNTER 2021-04-15 09:36 | Day surgery (SDC) | payer MEDICARE, MEDICAID ==
[~2021-04-15 09:36] MED LIST changes: -Acetaminophen/HYDROcodone 325-5 MG Tab PO PRN; -Lactated Ringers 1,000 ML IV SCH; +Metoclopramide 10 MG/2 ML SDV IV PRN; -Morphine 2 MG/ML Syringe IVPUSH PRN; -Ondansetron 4 MG/2 ML SDV IVPUSH PRN; -Sodium Chloride 0.9% 10 ML Syringe FLUSH PRN; -ceFAZolin 1 GM in Sodium Chloride 0.9% 50 ML IV ONE
[2021-04-15] MEDS: Sodium Chloride 0.9% 1,000 ML IV SCH (09:56)
[2021-04-15] MEDS ORDERED: Glycopyrrolate 0.2 MG/ML 2 ML SDV ONE (12:15)
[2021-04-15] MEDS ORDERED: Propofol 200 MG/20 ML SDV ONE (12:15)
[2021-04-15 12:31] VITALS: BP 141/74; PULSE 73
--- NOTE | 2021-04-15 13:28 | OR ---
DATE OF OPERATION: 04/15/2021 SURGEON: Watosn Carver MD PREOPERATIVE DIAGNOSIS: History of colon polyps. POSTOPERATIVE DIAGNOSIS: History of colon polyps. PROCEDURE: Colonoscopy. ANESTHESIA: MAC. ESTIMATED BLOOD LOSS: None. COMPLICATIONS: None. INDICATION FOR THE PROCEDURE: The patient is a 60-year-old female with a previous personal history of colorectal polyps. Last colonoscopy about 5 years ago and did fine, four polyps at that time. Denies any change in bowel habits since that time. DESCRIPTION OF PROCEDURE: Informed consent was obtained from the patient. The patient was taken to the operating room, placed on the table in left lateral decubitus position. Monitored anesthesia care was administered. Digital rectal exam was performed, was normal. Colonoscope was then advanced through the anus, directed towards the cecum. Cecum was reached and identified by appendiceal orifice and ileocecal valve. Colonoscope was then slowly withdrawn. No masses. No polyps. No areas of ischemia or inflammation identified. Did have a few small diverticula in the sigmoid colon. Rectum was also otherwise unremarkable. Colonoscope was then withdrawn. FINDINGS: Mild sigmoid diverticulosis. RECOMMENDATIONS: Would recommend high-fiber diet, plenty of water, and avoiding constipation. Would also recommend repeat surveillance colonoscopy in 5 years. MERARY/ORION /[id number]
== END 2021-04-15 13:30 | disposition home or self-care (01) ==
LOC: LB.SDS 09:36
PROVIDERS: ATTEND Surgery
DX: Z12.11 Encounter for screening for malignant neoplasm of colon (principal); K57.30 Diverticulosis of large intestine without perforation or abscess without bleeding; Z86.010 Personal history of colon polyps; Z88.0 Allergy status to penicillin
CPT/HCPCS: J2704; J3490; J7030

== ENCOUNTER 2021-07-31 14:38 | Observation (INO) | payer MEDICARE, MEDICAID ==
--- NOTE | 2021-07-31 15:18 | EDM.PDOC ---
ED HPI GENERAL MEDICAL PROBLEM - General Chief Complaint: Gastrointestinal Problem Stated Complaint: nausea/vomiting Time Seen by Provider: 07/31/21 14:40 Source of Information: Reports: Patient History Limitations: Reports: No Limitations - History of Present Illness INITIAL COMMENTS - FREE TEXT/NARRATIVE: 60-year-old female presents to the ED complaining of abdominal pain. Acute onset today approximately 11:00, patient does not know what triggered the event, patient thought it might be food poisoning. Patient describes as a generalized pain that is constant in the epigastric region that does not radiate anywhere. She rates it a 9/10 on the pain scale. Positive for diarrhea x3 days, flushed rash on face and chest, shortness of breath secondary to pain, nausea vomiting x1 today, fever today. Negative for chest pain, trauma, constipation, blood on stool, black tarry stool, syncope/near syncope, no swollen painful joints, no difficulty swallowing no cough, no easy bruising blurred vision or headache. - Related Data Allergies Allergy/AdvReac Type Severity Reaction Status Date / Time penicillin Allergy Rash Verified 07/31/21 17:57 Home Meds: Home Meds FLUoxetine HCl [Fluoxetine HCl] 20 mg PO DAILY 03/08/15 [History] Lisinopril 10 mg PO DAILY 03/08/15 [History] Simvastatin 20 mg PO QPM 03/08/15 [History] clonazePAM [Clonazepam] 0.5 mg PO QID PRN 03/08/15 [History] Ibuprofen 800 mg PO DAILY PRN 03/09/15 [History] Omeprazole 20 mg PO ACBREAKFAST 03/09/15 [History] Aspirin [Yana Chewable Aspirin] 81 mg PO DAILY 02/04/18 [History] Acyclovir [Zovirax 5% Oint] 1 applic TOP ASDIRECTED PRN 03/15/18 [History] risperiDONE 0.5 mg PO QPM 05/12/20 [History] Acetaminophen [Tylenol] 650 mg PO ASDIRECTED PRN 04/12/21 [History] Acetaminophen [Tylenol Arthritis] 650 mg PO Q6HR PRN 07/31/21 [History] FLUoxetine HCl [Fluoxetine HCl] 40 mg PO DAILY 07/31/21 [History] Past Medical History - Past Health History Medical/Surgical History: Denies Medical/Surgical History Cardiovascular History: Reports: High Cholesterol, Hypertension, NV Other Cardiovascular History: stress test showed probably NV Respiratory History: Reports: None Gastrointestinal History: Reports: GERD, Other (See Below) Other Gastrointestinal History: Umbilical Hernia Genitourinary History: Reports: STD, Other (See Below) Other Genitourinary History: herpes,genital Other OPEN WINDER History: no pregnancies reported Musculoskeletal History: Reports: None Other Musculoskeletal History: back pain history: better with past PT intervention Neurological History: Reports: Migraines Other Neuro History: had migraines several years ago Psychiatric History: Reports: Anxiety, Depression, PTSD Other Psychiatric History: social phobia Endocrine/Metabolic History: Reports: Diabetes, Type II Oncologic (Cancer) History: Reports: None - Past Surgical History Head Surgeries/Procedures: Reports: None HEENT Surgical History: Reports: Tonsillectomy Cardiovascular Surgical History: Reports: Coronary Artery Stent Other Cardiovascular Surgeries/Procedures: no pacemaker GI Surgical History: Reports: Hernia Repair/Other Other GI Surgeries/Procedures: Umbilical Hernia repair Female Surgical History: Reports: None Musculoskeletal Surgical History: Reports: None, Knee Replacement Other Musculoskeletal Surgeries/Procedures:: no further complaints Social & Family History - Family History Family Medical History: No Pertinent Family History GI: Reports: Colon Polyps Oncologic: Reports: Colon - Caffeine Use Caffeine Use: Reports: Soda ED ROS GENERAL - Review of Systems Review Of Systems: Comprehensive ROS is negative, except as noted in HPI. ED EXAM, GI/ABD - Physical Exam Exam: See Below Text/Narrative:: 58-year-old female found fidgeting in [facility] ED. Patient is in obvious emotional distress/distress secondary to pain. She is alert and oriented 3/3 GCS 4 5 6. Speaking in full sentences, no obvious trauma. ABCs are intact Exam Limited By: No Limitations General Appearance: Alert, WD/WN, Anxious, Moderate Distress Eyes: Bilateral: EOMI Ears: Normal External Exam, Hearing Grossly Normal Nose: Normal Inspection, Normal Mucosa, No Blood Throat/Mouth: Normal Inspection, Normal Gums, Normal Voice, No Airway Compromise Head: Atraumatic, Normocephalic, Other (Patient has flushing from midline to skilled nursing across eyebrow superiorly. ) Neck: Normal Inspection, Supple, Non-Tender. No: Lymphadenopathy (R), Lymphadenopathy (L) Respiratory/Chest: No Respiratory Distress, Lungs Clear, Normal Breath Sounds, No Accessory Muscle Use Cardiovascular: Normal Peripheral Pulses (Tate hopefully will get millimeters mildly), Regular Rate, Rhythm, No Edema, No Gallop, No JVD, No Murmur, No Rub GI/Abdominal Exam: Normal Bowel Sounds, Soft, Non-Tender Back Exam: Normal Inspection, Full Range of Motion, NT Extremities: Normal Inspection, Normal Range of Motion, Non-Tender, Normal Capillary Refill, No Pedal Edema Neurological: Alert, Oriented, Normal Cognition Psychiatric: Anxious Skin Exam: Warm, Dry, Intact, Normal Color, Other (Patient flushed across the forehead and between her eyebrows and on her chest) Lymphatic: No Adenopathy #1 Interpretation EKG Date: 07/31/21 (Normal sinus rhythm without ectopy, no ST elevation or depression, this is not a STEMI) Course - Vital Signs Last Recorded V/S: Last Vital Signs Temp 96 F L 07/31/21 21:34 Pulse 60 07/31/21 21:34 Resp 18 07/31/21 21:34 BP 123/90 07/31/21 21:34 Pulse Ox 100 07/31/21 21:34 - Orders/Labs/Meds Orders: Active Orders 24 hr Category Date Time Status Admission Status [Patient Status] [ADT] Routine ADT 07/31/21 21:53 Active Abdomen Pelvis w Cont [CT] Stat Exams 07/31/21 15:47 Taken Chest 1V Frontal [CR] Stat Exams 07/31/21 15:02 Taken Iopamidol [Isovue-300 (61%)] Med 07/31/21 16:14 Active 100 ml IV . DIRECTED PRN Sodium Chloride 0.9% [Normal Saline] Med 07/31/21 16:15 Active 50 ml FLUSH ONETIME EKG 12 Lead [EK] Routine Ther 07/31/21 15:01 Ordered Medication Orders Iopamidol (Iopamidol 612 Mg/Ml 100 Ml Bottle) 100 ml IV . DIRECTED PRN PRN Reason: RADIOLOGY EXAM Stop: 08/01/21 16:15 Last Admin: 07/31/21 16:20 Dose: 100 ml Documented by: CHELO Sodium Chloride (Sodium Chloride 0.9% 50 Ml Sdv) 50 ml FLUSH ONETIME ROMAN Last Admin: 07/31/21 16:20 Dose: 50 ml Documented by: CHELO Labs: Laboratory Tests 07/31/21 07/31/21 07/31/21 Range/Units 15:40 15:40 15:40 WBC 14.1 H D (4.0-11.0) K/uL RBC 4.97 (3.80-5.80) M/uL Hgb 15.5 (11.5-16.5) g/dL Hct 45.8 (37.0-47.0) % MCV 92 (76-96) fL MCH 31.2 (27.0-32.0) pg MCHC 33.8 (31.0-35.0) g/dL RDW 12.7 (11.0-16.0) % Plt Count 333 D (150-500) K/uL MPV 9.7 (6.0-10.0) fL Neut % (Auto) 84.1 H (45.0-70.0) % Lymph % (Auto) 9.8 L (20.0-40.0) % Eagle % (Auto) 5.4 (3.0-10.0) % Eos % (Auto) 0.4 L (1.0-5.0) % Baso % (Auto) 0.3 (0.0-0.5) % Neut # (Auto) 11.87 H (2.00-7.50) K/uL Lymph # (Auto) 1.38 L (1.50-4.00) K/uL Eagle # (Auto) 0.76 (0.20-0.80) K/uL Eos # (Auto) 0.06 (0.04-0.40) K/uL Baso # (Auto) 0.04 (0.02-0.10) K/uL ESR 40 H (0-30) mm/hr Sodium 138 (136-145) mmol/L Potassium 3.7 (3.5-5.1) mmol/L Chloride 103 (98-107) mmol/L Carbon Dioxide 18.4 L D (21.0-32.0) mmol/L Anion Gap 20.3 H (5.0-15.0) mmol/L BUN 14 D (8-26) mg/dL Creatinine 0.97 (0.55-1.02) mg/dL Est Cr Clr Drug Dosing TNP Estimated GFR (MDRD) 58 L (>60) MLS/MIN BUN/Creatinine Ratio 14.4 (6-25) Glucose 124 H (74-100) mg/dL Lactic Acid 2.2 H (0.4-2.0) mmol/L Calcium 10.0 (8.5-10.1) mg/dL Total Bilirubin 1.0 D (0.0-1.0) mg/dL AST 18 (15-37) U/L ALT 23 (12-78) U/L Alkaline Phosphatase 111 (46-116) U/L Troponin I < 0.017 (0.000-0.060) ng/mL Total Protein 8.1 (6.4-8.2) g/dL Albumin 4.3 (3.4-5.0) g/dL Globulin 3.8 (2.2-4.2) g/dL Albumin/Globulin Ratio 1.1 (0.8-2.0) Lipase 129 (73-393) U/L Urine Color Urine Appearance (CLEAR) Urine pH (5.0-8.0) Ur Specific [place] (1.003-1.030) Urine Protein (NEGATIVE) mg/dL Urine Glucose (UA) (NEGATIVE) mg/dL Urine Ketones (NEGATIVE) mg/dL Urine Occult Blood (NEGATIVE) Urine Nitrite (NEGATIVE) Urine Bilirubin (NEGATIVE) Urine Urobilinogen (0.2-1.0) E.U./dL Ur Leukocyte Esterase (NEGATIVE) Urine RBC /HPF Urine WBC /HPF Ur Squamous Epith Cells /HPF Amorphous Sediment /HPF Urine Mucus /HPF SARS CoV-2 RNA Rapid ALEX 07/31/21 07/31/21 Range/Units 15:40 15:40 WBC (4.0-11.0) K/uL RBC (3.80-5.80) M/uL Hgb (11.5-16.5) g/dL Hct (37.0-47.0) % MCV (76-96) fL MCH (27.0-32.0) pg MCHC (31.0-35.0) g/dL RDW (11.0-16.0) % Plt Count (150-500) K/uL MPV (6.0-10.0) fL Neut % (Auto) (45.0-70.0) % Lymph % (Auto) (20.0-40.0) % Eagle % (Auto) (3.0-10.0) % Eos % (Auto) (1.0-5.0) % Baso % (Auto) (0.0-0.5) % Neut # (Auto) (2.00-7.50) K/uL Lymph # (Auto) (1.50-4.00) K/uL Eagle # (Auto) (0.20-0.80) K/uL Eos # (Auto) (0.04-0.40) K/uL Baso # (Auto) (0.02-0.10) K/uL ESR (0-30) mm/hr Sodium (136-145) mmol/L Potassium (3.5-5.1) mmol/L Chloride (98-107) mmol/L Carbon Dioxide (21.0-32.0) mmol/L Anion Gap (5.0-15.0) mmol/L BUN (8-26) mg/dL Creatinine (0.55-1.02) mg/dL Est Cr Clr Drug Dosing Estimated GFR (MDRD) (>60) MLS/MIN BUN/Creatinine Ratio (6-25) Glucose (74-100) mg/dL Lactic Acid (0.4-2.0) mmol/L Calcium (8.5-10.1) mg/dL Total Bilirubin (0.0-1.0) mg/dL AST (15-37) U/L ALT (12-78) U/L Alkaline Phosphatase (46-116) U/L Troponin I (0.000-0.060) ng/mL Total Protein (6.4-8.2) g/dL Albumin (3.4-5.0) g/dL Globulin (2.2-4.2) g/dL Albumin/Globulin Ratio (0.8-2.0) Lipase (73-393) U/L Urine Color Yellow Urine Appearance Clear (CLEAR) Urine pH 5.5 (5.0-8.0) Ur Specific [place] >= 1.030 (1.003-1.030) Urine Protein 100 H (NEGATIVE) mg/dL Urine Glucose (UA) Negative (NEGATIVE) mg/dL Urine Ketones Trace H (NEGATIVE) mg/dL Urine Occult Blood Trace-lysed H (NEGATIVE) Urine Nitrite Negative (NEGATIVE) Urine Bilirubin Small H (NEGATIVE) Urine Urobilinogen 0.2 (0.2-1.0) E.U./dL Ur Leukocyte Esterase Negative (NEGATIVE) Urine RBC 0-5 H /HPF Urine WBC 0-5 H /HPF Ur Squamous Epith Cells Few /HPF Amorphous Sediment Few /HPF Urine Mucus Few /HPF SARS CoV-2 RNA Rapid ALEX Negative Meds: Medications Generic Name Dose Route Start Last Admin Trade Name Freq PRN Reason Stop Dose Admin Iopamidol 100 ml 07/31/21 16:14 07/31/21 16:20 Iopamidol 612 Mg/Ml 100 Ml Bottle IV 08/01/21 16:15 100 ml . DIRECTED PRN Administration RADIOLOGY EXAM Sodium Chloride 50 ml 07/31/21 16:15 07/31/21 16:20 Sodium Chloride 0.9% 50 Ml Sdv FLUSH 50 ml ONETIME ROMAN Administration Discontinued Medications Generic Name Dose Route Start Last Admin Trade Name Freq PRN Reason Stop Dose Admin Al Hydroxide/Mg Hydroxide 30 ml 07/31/21 19:31 07/31/21 19:44 Gi Cocktail Oral Solution 30 Ml PO 07/31/21 19:32 30 ml ONETIME ONE Administration Sodium Chloride 1,000 mls @ 999 mls/hr 07/31/21 18:25 07/31/21 19:50 Normal Saline IV 07/31/21 19:25 999 mls/hr .BOLUS ONE Administration Ketorolac Tromethamine 30 mg 07/31/21 20:40 07/31/21 15:00 Ketorolac 30 Mg/Ml Sdv IM 07/31/21 20:41 30 mg ONETIME ONE Administration Lorazepam 1 mg 07/31/21 20:35 07/31/21 15:00 Lorazepam 2 Mg/Ml Sdv IM 07/31/21 20:36 1 mg ONETIME ONE Administration Lorazepam 1 mg 07/31/21 20:38 07/31/21 15:20 Lorazepam 2 Mg/Ml Sdv IVPUSH 07/31/21 20:39 1 mg ONETIME ONE Administration Morphine Sulfate 2 mg 07/31/21 15:27 07/31/21 15:29 Morphine 2 Mg/Ml Syringe IVPUSH 07/31/21 15:28 2 mg ONETIME ONE Administration Morphine Sulfate Confirm 07/31/21 17:01 07/31/21 19:42 Morphine 10 Mg/Ml Sdv Administered 07/31/21 17:02 Not Given Dose 10 mg .ROUTE .STK-MED ONE Morphine Sulfate 4 mg 07/31/21 20:34 07/31/21 16:50 Morphine 4 Mg/Ml Vial IVPUSH 07/31/21 20:35 4 mg ONETIME ONE Administration Ondansetron HCl Confirm 07/31/21 17:01 07/31/21 19:42 Ondansetron 4 Mg/2 Ml Sdv Administered 07/31/21 17:02 Not Given Dose 4 mg .ROUTE .STK-MED ONE Ondansetron HCl 4 mg 07/31/21 20:34 07/31/21 14:44 Ondansetron 4 Mg Tab.Dis PO 07/31/21 20:35 4 mg ONETIME ONE Administration Pantoprazole Sodium 40 mg 07/31/21 18:54 07/31/21 19:42 Pantoprazole 40 Mg Vial IVPUSH 07/31/21 18:55 40 mg ONETIME ONE Administration Promethazine HCl 25 mg 07/31/21 21:22 07/31/21 21:31 Promethazine 25 Mg/Ml Sdv IM 07/31/21 21:23 25 mg ONETIME ONE Administration Promethazine HCl Confirm 07/31/21 21:25 07/31/21 21:31 Promethazine 25 Mg/Ml Sdv Administered 07/31/21 21:26 Not Given Dose 25 mg .ROUTE .STK-MED ONE - Radiology Interpretation Free Text/Narrative:: CT of abdomen and pelvis with contrast: Impression cholelithiasis. No evidence of pericholecystic fluid or inflammatory changes. Mild diffuse thickening of the gastric rugal folds; this could be due to gastritis or under distention of the stomach. Mild colonic diverticulosis. No evidence of intra-abdominal abscess or acute appendicitis. Chest x-ray: No acute cardiopulmonary findings. Linear subsegmental atelectasis versus pleural parenchymal scarring in the lingula Departure - Departure Time of Disposition: 21:30 Disposition: Refer to Observation Condition: Good Clinical Impression: Gastroenteritis, Vomiting, Diarrhea, Abdominal pain - Discharge Information *PRESCRIPTION DRUG MONITORING PROGRAM REVIEWED*: No *COPY OF PRESCRIPTION DRUG MONITORING REPORT IN PATIENT ARIELLE: No Forms: ED Department Discharge Sepsis Event Note (ED) - Focused Exam Vital Signs: Vital Signs Temp Pulse Resp BP Pulse Ox 07/31/21 21:34 96 F L 60 18 123/90 100 07/31/21 17:50 96.1 F L 63 18 77/58 L 100 - My Orders Last 24 Hours: My Active Orders 07/31/21 15:01 EKG 12 Lead [EK] Routine 07/31/21 15:02 Chest 1V Frontal [CR] Stat 07/31/21 15:47 Abdomen Pelvis w Cont [CT] Stat 07/31/21 16:14 Iopamidol [Isovue-300 (61%)] 100 ml IV . DIRECTED PRN 07/31/21 16:15 Sodium Chloride 0.9% [Normal Saline] 50 ml FLUSH ONETIME 07/31/21 21:53 Admission Status [Patient Status] [ADT] Routine - Assessment/Plan Last 24 Hours: My Active Orders 07/31/21 15:01 EKG 12 Lead [EK] Routine 07/31/21 15:02 Chest 1V Frontal [CR] Stat 07/31/21 15:47 Abdomen Pelvis w Cont [CT] Stat 07/31/21 16:14 Iopamidol [Isovue-300 (61%)] 100 ml IV . DIRECTED PRN 07/31/21 16:15 Sodium Chloride 0.9% [Normal Saline] 50 ml FLUSH ONETIME 07/31/21 21:53 Admission Status [Patient Status] [ADT] Routine Assessment:: 60-year-old female who presents for abdominal pain as detailed above. A broad differential diagnosis was considered including appendicitis, gallbladder disease, pancreatitis, diverticular disease, bowel obstruction, volvulus, intussusception, gastritis and peptic ulcer disease, gastrointestinal infection, inflammatory bowel disease, peritonitis, kidney stones, UTI,, PID and ovarian cyst, mesenteric lymphadenopathy, IBS. The work-up in the ED is at this point negative no definitive etiology of the patient's pain is been found at this point and my suspicion of an intra-abdominal catastrophe or other worrisome etiology is low. Imaging studies show what is referenced in CT imaging portion of this report. Cardiac etiologies are unlikely as supported by no ST elevation or depression on twelve-lead EKG and a negative troponin. Patient was treated in the ED with lack of response, patient was admitted for pain relief/rehydration and antianxiety medications since she was unable to keep her at home medications down. Patient is hemodynamically stable in the ED plan is to observe the patient overnight, rehydrate the patient administer antianxiety medications pain medications including a GI cocktail for symptomatic relief. Plan: ABC, history, exam, labs, EKG, CT/x-ray, 30 mg ketorolac, morphine, Ativan, Zofran, IV, normal saline bolus, GI cocktail, Phenergan, Benadryl. Nausea vomitingZofran, normal saline, Phenergan Abdominal pain- ketorolac, morphine, GI cocktail AnxietyAtivan, Benadryl, morphine
[2021-07-31] MEDS ORDERED: Morphine 2 MG/ML SYRINGE IVPUSH ONE (15:27)
[2021-07-31] MEDS ORDERED: Iopamidol 612 MG/ML 100 ML Bottle IV PRN (16:14)
[2021-07-31] MEDS ORDERED: Sodium Chloride 0.9% 50 ML SDV FLUSH SCH (16:15)
[2021-07-31] MEDS ORDERED: Ondansetron 4 MG/2 ML SDV ONE (17:01)
[2021-07-31] MEDS ORDERED: Morphine 10 MG/ML SDV ONE (17:01)
[2021-07-31] MEDS: Sodium Chloride 0.9% 1,000 ML IV ONE ×2 (18:25→19:50)
[2021-07-31] MEDS ORDERED: Pantoprazole 40 MG Vial IVPUSH ONE (18:54)
[2021-07-31] MEDS: GI Cocktail Oral Solution 30 ML PO ONE (19:44)
[2021-07-31] MEDS ORDERED: Ondansetron 4 MG Tab.DIS PO ONE (20:34)
[2021-07-31] MEDS ORDERED: Morphine 4 MG/ML VIAL IVPUSH ONE (20:34)
[2021-07-31] MEDS ORDERED: LORazepam 2 MG/ML SDV IM ONE (20:35)
[2021-07-31] MEDS ORDERED: LORazepam 2 MG/ML SDV IVPUSH ONE ×2 (20:38→22:34)
[2021-07-31] MEDS ORDERED: Ketorolac 30 MG/ML SDV IM ONE (20:40)
[2021-07-31] MEDS ORDERED: Promethazine 25 MG/ML SDV IM ONE (21:22)
[2021-07-31] MEDS ORDERED: Promethazine 25 MG/ML SDV ONE (21:25)
[2021-07-31] MEDS ORDERED: diphenhydrAMINE 50 MG/ML SDV IVPUSH ONE (22:33)
--- NOTE | 2021-08-01 10:39 | CR ---
Date of Service: 07/31/21 Clinical Data: abd px AP CHEST: Comparison is made to a prior exam dated 07/21/15. The heart size is normal. The aorta is ectatic. There is a linear density in the left midlung consistent with linear atelectasis or fibrosis. The lungs are otherwise clear. No pneumothorax. No pleural effusions. There is a healed rib fracture on the right. No other significant findings. [id number] [facility]
--- NOTE | 2021-08-01 10:51 | CT ---
Date of Service: 07/31/21 Clinical Data: abd pain ENHANCED ABDOMEN AND PELVIC CT: Multislice acquisition through the abdomen and pelvis with IV, but with oral contrast was performed. Comparison is made to a prior exam dated 05/12/20. The lung bases are clear. The heart size is normal. There is decreased attenuation of the liver adjacent to the falciform ligament consistent with focal fatty infiltration. The liver otherwise appears normal. No biliary duct dilatation. There are multiple calcified gallstones in the dependent gallbladder. No pericholecystic fluid. No gallbladder wall thickening. The spleen appears normal. The pancreas appears normal. The right and left adrenals appear normal. The right and left kidneys enhance symmetrically. No hydronephrosis or hydroureter. There is a small amount of fluid within the bladder. It appears normal. No evidence of appendicitis. There is diffuse gastric wall thickening. This is probably related to nondistention. Gastritis or an infiltrating process should be considered. There is mild diverticulosis of the descending and sigmoid colon. No evidence of diverticulitis. There is mild mural thickening within the sigmoid colon. This is probably related to nondistention. Colitis should at leas be considered. No free air. No free fluid. No dilated loops of bowel. No adenopathy. No aortic aneurysm or dissection. There is degenerative disk disease at multiple levels in the lower thoracic and lumbar spine. [id number] [facility]
[2021-08-01 12:22] VITALS: BP 149/80; PULSE 65
[2021-08-01] MEDS: GI Cocktail Oral Solution 30 ML PO ONE (12:37)
--- NOTE | 2021-08-01 12:45 | PCM.DCSUM1 ---
Discharge Summary - Hospital Course Free Text/Narrative:: H&P and discharge summary 60-year-old female was seen in the ED last night for nausea vomiting, diarrhea, abdominal pain. Patient was unable to take her psych medications due to inability to keep anything down. Patient became scared and could not handle the pain any further. Patient was given pain medication, GI cocktail, Zofran, and 2 L of normal saline. Patient was unable to sleep most likely due to acute withdrawal from multiple psych medications. Patient was given Ativan and Benadryl to help sleep patient did not get to sleep until approximately 4-5 o'clock this morning where she slept till noon. Upon waking patient feels much better she is alert and oriented 3 of 3 GCS 4 5 6, says that her pain is approximately a 3/10 now, and is able to keep oral medications down. The plan is to have patient take her daily medications including risperidone today at noon, as she is already exhibiting some withdrawal symptoms from the clonazepam primarily tremor in both hands. Patient will get another dose of GI cocktail. Instructions for what should bring her back to the ED were given. And to take her risperidone tomorrow night, and resume her normal schedule. Take all other medications as prescribed. Cardiac: Regular rate and rhythm, strong peripheral pulses. Pulmonary: Lung sounds clear bilaterally, equal expansion no accessory muscle use Abdomen: Soft nontender all quadrants, no masses, no rigidity. Skin: Flushed skin has abated back to baseline. Diagnosis: Stroke: No - Discharge Data Discharge Date: 08/01/21 Discharge Disposition: Home, Self-Care 01 Condition: Good - Referral to Home Health Primary Care Physician: PCP None - Patient Instructions Activity: Rest and Relax Today Showering/Bathing: May Shower Notify Provider of: Fever, Increased Pain, Nausea and/or Vomiting (Increased) - Discharge Plan *PRESCRIPTION DRUG MONITORING PROGRAM REVIEWED*: No *COPY OF PRESCRIPTION DRUG MONITORING REPORT IN PATIENT ARIELLE: No Home Medications: Home Meds FLUoxetine HCl [Fluoxetine HCl] 20 mg PO DAILY 03/08/15 [History] Lisinopril 10 mg PO DAILY 03/08/15 [History] Simvastatin 20 mg PO QPM 03/08/15 [History] clonazePAM [Clonazepam] 0.5 mg PO QID PRN 03/08/15 [History] Ibuprofen 800 mg PO DAILY PRN 03/09/15 [History] Omeprazole 20 mg PO ACBREAKFAST 03/09/15 [History] Aspirin [Yana Chewable Aspirin] 81 mg PO DAILY 02/04/18 [History] Acyclovir [Zovirax 5% Oint] 1 applic TOP ASDIRECTED PRN 03/15/18 [History] risperiDONE 0.5 mg PO QPM 05/12/20 [History] Acetaminophen [Tylenol] 650 mg PO ASDIRECTED PRN 04/12/21 [History] Acetaminophen [Tylenol Arthritis] 650 mg PO Q6HR PRN 07/31/21 [History] FLUoxetine HCl [Fluoxetine HCl] 40 mg PO DAILY 07/31/21 [History] Forms: ED Department Discharge Referrals: PCP,None [Primary Care Provider] - - Discharge Summary/Plan Comment DC Time >30 min.: No Total # of Minutes for Discharge Time: 25 - General Info Date of Service: 08/01/21 Admission Dx/Problem (Free Text: -Abdominal pain -Nausea vomiting -Diarrhea -Withdrawal from psych meds Functional Status: Reports: Pain Controlled, Tolerating Diet, Ambulating, Urinating - Review of Systems General: Reports: No Symptoms HEENT: Reports: No Symptoms Pulmonary: Reports: No Symptoms Cardiovascular: Reports: No Symptoms Gastrointestinal: Reports: Abdominal Pain (Much improved 11/11) Genitourinary: Reports: No Symptoms Musculoskeletal: Reports: No Symptoms Skin: Reports: No Symptoms Neurological: Reports: Tremors Psychiatric: Reports: Anxiety, Other (Fidgety, tremors) - Patient Data Vitals - Most Recent: Last Vital Signs Temp 99.0 F 08/01/21 12:00 Pulse 65 08/01/21 12:00 Resp 17 08/01/21 12:00 BP 149/80 H 08/01/21 12:00 Pulse Ox 100 08/01/21 12:00 Weight - Most Recent: 204 lb I&O - Last 24 hours: Intake & Output 07/31/21 08/01/21 08/01/21 22:59 06:59 14:59 Intake Total 240 Balance 240 Lab Results - Last 24 hrs: Laboratory Results - last 24 hr 07/31/21 07/31/21 07/31/21 Range/Units 15:40 15:40 15:40 WBC 14.1 H D (4.0-11.0) K/uL RBC 4.97 (3.80-5.80) M/uL Hgb 15.5 (11.5-16.5) g/dL Hct 45.8 (37.0-47.0) % MCV 92 (76-96) fL MCH 31.2 (27.0-32.0) pg MCHC 33.8 (31.0-35.0) g/dL RDW 12.7 (11.0-16.0) % Plt Count 333 D (150-500) K/uL MPV 9.7 (6.0-10.0) fL Neut % (Auto) 84.1 H (45.0-70.0) % Lymph % (Auto) 9.8 L (20.0-40.0) % Hawkins % (Auto) 5.4 (3.0-10.0) % Eos % (Auto) 0.4 L (1.0-5.0) % Baso % (Auto) 0.3 (0.0-0.5) % Neut # (Auto) 11.87 H (2.00-7.50) K/uL Lymph # (Auto) 1.38 L (1.50-4.00) K/uL Hawkins # (Auto) 0.76 (0.20-0.80) K/uL Eos # (Auto) 0.06 (0.04-0.40) K/uL Baso # (Auto) 0.04 (0.02-0.10) K/uL ESR 40 H (0-30) mm/hr Sodium 138 (136-145) mmol/L Potassium 3.7 (3.5-5.1) mmol/L Chloride 103 (98-107) mmol/L Carbon Dioxide 18.4 L D (21.0-32.0) mmol/L Anion Gap 20.3 H (5.0-15.0) mmol/L BUN 14 D (8-26) mg/dL Creatinine 0.97 (0.55-1.02) mg/dL Est Cr Clr Drug Dosing TNP Estimated GFR (MDRD) 58 L (>60) MLS/MIN BUN/Creatinine Ratio 14.4 (6-25) Glucose 124 H (74-100) mg/dL Lactic Acid 2.2 H (0.4-2.0) mmol/L Calcium 10.0 (8.5-10.1) mg/dL Total Bilirubin 1.0 D (0.0-1.0) mg/dL AST 18 (15-37) U/L ALT 23 (12-78) U/L Alkaline Phosphatase 111 (46-116) U/L Troponin I < 0.017 (0.000-0.060) ng/mL Total Protein 8.1 (6.4-8.2) g/dL Albumin 4.3 (3.4-5.0) g/dL Globulin 3.8 (2.2-4.2) g/dL Albumin/Globulin Ratio 1.1 (0.8-2.0) Lipase 129 (73-393) U/L Urine Color Urine Appearance (CLEAR) Urine pH (5.0-8.0) Ur Specific [place] (1.003-1.030) Urine Protein (NEGATIVE) mg/dL Urine Glucose (UA) (NEGATIVE) mg/dL Urine Ketones (NEGATIVE) mg/dL Urine Occult Blood (NEGATIVE) Urine Nitrite (NEGATIVE) Urine Bilirubin (NEGATIVE) Urine Urobilinogen (0.2-1.0) E.U./dL Ur Leukocyte Esterase (NEGATIVE) Urine RBC /HPF Urine WBC /HPF Ur Squamous Epith Cells /HPF Amorphous Sediment /HPF Urine Mucus /HPF SARS CoV-2 RNA Rapid ALEX 07/31/21 07/31/21 Range/Units 15:40 15:40 WBC (4.0-11.0) K/uL RBC (3.80-5.80) M/uL Hgb (11.5-16.5) g/dL Hct (37.0-47.0) % MCV (76-96) fL MCH (27.0-32.0) pg MCHC (31.0-35.0) g/dL RDW (11.0-16.0) % Plt Count (150-500) K/uL MPV (6.0-10.0) fL Neut % (Auto) (45.0-70.0) % Lymph % (Auto) (20.0-40.0) % Hawkins % (Auto) (3.0-10.0) % Eos % (Auto) (1.0-5.0) % Baso % (Auto) (0.0-0.5) % Neut # (Auto) (2.00-7.50) K/uL Lymph # (Auto) (1.50-4.00) K/uL Hawkins # (Auto) (0.20-0.80) K/uL Eos # (Auto) (0.04-0.40) K/uL Baso # (Auto) (0.02-0.10) K/uL ESR (0-30) mm/hr Sodium (136-145) mmol/L Potassium (3.5-5.1) mmol/L Chloride (98-107) mmol/L Carbon Dioxide (21.0-32.0) mmol/L Anion Gap (5.0-15.0) mmol/L BUN (8-26) mg/dL Creatinine (0.55-1.02) mg/dL Est Cr Clr Drug Dosing Estimated GFR (MDRD) (>60) MLS/MIN BUN/Creatinine Ratio (6-25) Glucose (74-100) mg/dL Lactic Acid (0.4-2.0) mmol/L Calcium (8.5-10.1) mg/dL Total Bilirubin (0.0-1.0) mg/dL AST (15-37) U/L ALT (12-78) U/L Alkaline Phosphatase (46-116) U/L Troponin I (0.000-0.060) ng/mL Total Protein (6.4-8.2) g/dL Albumin (3.4-5.0) g/dL Globulin (2.2-4.2) g/dL Albumin/Globulin Ratio (0.8-2.0) Lipase (73-393) U/L Urine Color Yellow Urine Appearance Clear (CLEAR) Urine pH 5.5 (5.0-8.0) Ur Specific [place] >= 1.030 (1.003-1.030) Urine Protein 100 H (NEGATIVE) mg/dL Urine Glucose (UA) Negative (NEGATIVE) mg/dL Urine Ketones Trace H (NEGATIVE) mg/dL Urine Occult Blood Trace-lysed H (NEGATIVE) Urine Nitrite Negative (NEGATIVE) Urine Bilirubin Small H (NEGATIVE) Urine Urobilinogen 0.2 (0.2-1.0) E.U./dL Ur Leukocyte Esterase Negative (NEGATIVE) Urine RBC 0-5 H /HPF Urine WBC 0-5 H /HPF Ur Squamous Epith Cells Few /HPF Amorphous Sediment Few /HPF Urine Mucus Few /HPF SARS CoV-2 RNA Rapid ALEX Negative Med Orders - Current: Current Medications Iopamidol (Iopamidol 612 Mg/Ml 100 Ml Bottle) 100 ml IV . DIRECTED PRN PRN Reason: RADIOLOGY EXAM Stop: 08/01/21 16:15 Last Admin: 07/31/21 16:20 Dose: 100 ml Documented by: Sodium Chloride (Sodium Chloride 0.9% 50 Ml Sdv) 50 ml FLUSH ONETIME ROMAN Last Admin: 07/31/21 16:20 Dose: 50 ml Documented by: Discontinued Medications Al Hydroxide/Mg Hydroxide (Gi Cocktail Oral Solution 30 Ml) 30 ml PO ONETIME ONE Stop: 07/31/21 19:32 Last Admin: 08/01/21 12:37 Dose: 30 ml Documented by: Diphenhydramine HCl (Diphenhydramine 50 Mg/Ml Sdv) 50 mg IVPUSH ONETIME ONE Stop: 07/31/21 22:34 Last Admin: 07/31/21 22:46 Dose: 50 mg Documented by: Sodium Chloride (Normal Saline) 1,000 mls @ 999 mls/hr IV .BOLUS ONE Stop: 07/31/21 19:25 Last Admin: 07/31/21 19:50 Dose: 999 mls/hr Documented by: Ketorolac Tromethamine (Ketorolac 30 Mg/Ml Sdv) 30 mg IM ONETIME ONE Stop: 07/31/21 20:41 Last Admin: 07/31/21 15:00 Dose: 30 mg Documented by: Lorazepam (Lorazepam 2 Mg/Ml Sdv) 1 mg IM ONETIME ONE Stop: 07/31/21 20:36 Last Admin: 07/31/21 15:00 Dose: 1 mg Documented by: Lorazepam (Lorazepam 2 Mg/Ml Sdv) 1 mg IVPUSH ONETIME ONE Stop: 07/31/21 20:39 Last Admin: 07/31/21 15:20 Dose: 1 mg Documented by: Lorazepam (Lorazepam 2 Mg/Ml Sdv) 2 mg IVPUSH ONETIME ONE Stop: 07/31/21 22:35 Last Admin: 07/31/21 22:46 Dose: 2 mg Documented by: Morphine Sulfate (Morphine 2 Mg/Ml Syringe) 2 mg IVPUSH ONETIME ONE Stop: 07/31/21 15:28 Last Admin: 07/31/21 15:29 Dose: 2 mg Documented by: Morphine Sulfate (Morphine 10 Mg/Ml Sdv) Confirm Administered Dose 10 mg .ROUTE .STK-MED ONE Stop: 07/31/21 17:02 Last Admin: 07/31/21 19:42 Dose: Not Given Documented by: Morphine Sulfate (Morphine 4 Mg/Ml Vial) 4 mg IVPUSH ONETIME ONE Stop: 07/31/21 20:35 Last Admin: 07/31/21 16:50 Dose: 4 mg Documented by: Ondansetron HCl (Ondansetron 4 Mg/2 Ml Sdv) Confirm Administered Dose 4 mg .ROUTE .STK-MED ONE Stop: 07/31/21 17:02 Last Admin: 07/31/21 19:42 Dose: Not Given Documented by: Ondansetron HCl (Ondansetron 4 Mg Tab.Dis) 4 mg PO ONETIME ONE Stop: 07/31/21 20:35 Last Admin: 07/31/21 14:44 Dose: 4 mg Documented by: Pantoprazole Sodium (Pantoprazole 40 Mg Vial) 40 mg IVPUSH ONETIME ONE Stop: 07/31/21 18:55 Last Admin: 07/31/21 19:42 Dose: 40 mg Documented by: Promethazine HCl (Promethazine 25 Mg/Ml Sdv) 25 mg IM ONETIME ONE Stop: 07/31/21 21:23 Last Admin: 07/31/21 21:31 Dose: 25 mg Documented by: Promethazine HCl (Promethazine 25 Mg/Ml Sdv) Confirm Administered Dose 25 mg .ROUTE .STK-MED ONE Stop: 07/31/21 21:26 Last Admin: 07/31/21 21:31 Dose: Not Given Documented by: - Exam General: Reports: Alert, Oriented HEENT: Reports: Pupils Equal, Pupils Reactive, EOMI, Mucous Membr. Moist/[place] Neck: Reports: Supple Lungs: Reports: Clear to Auscultation, Normal Respiratory Effort Cardiovascular: Reports: Regular Rate, Regular Rhythm GI/Abdominal Exam: Normal Bowel Sounds, Soft, Non-Tender, No Organomegaly, No Distention, No Mass Back Exam: Reports: Normal Inspection. Denies: CVA Tenderness (R), CVA Tenderness (L) Extremities: Normal Inspection, Normal Range of Motion, Non-Tender, No Pedal Edema, Normal Capillary Refill Skin: Reports: Warm, Dry, Intact Neurological: Reports: Other (Tremors) Psy/Mental Status: Reports: Alert, Normal Affect, Normal Mood
== END 2021-08-01 13:30 | disposition home or self-care (01) ==
LOC: LB.ED 14:38 → LB.MS 21:53
PROVIDERS: ADMIT Physician Assistant; ATTEND Physician Assistant
DX: R10.9 Unspecified abdominal pain (principal); E78.00 Pure hypercholesterolemia, unspecified; I10 Essential (primary) hypertension; I25.2 Old myocardial infarction; K21.9 Gastro-esophageal reflux disease without esophagitis; E11.9 Type 2 diabetes mellitus without complications; Z20.822 Contact with and (suspected) exposure to COVID-19; Z79.84 Long term (current) use of oral hypoglycemic drugs; Z98.890 Other specified postprocedural states; Z88.0 Allergy status to penicillin; Z79.899 Other long term (current) drug therapy; Z79.82 Long term (current) use of aspirin
CPT/HCPCS: 36415; 71045; 74177; 80053; 81001; 83605; 83690; 84484; 85025; 85651; 93005; 96372; 96374; 96375; 96376; 99285; A9270; C9113; G0378; J1200; J1885; J2060; J2270; J2550; J7030; Q9967; U0002

== ENCOUNTER 2021-08-02 08:46 | Emergency (ER) | payer MEDICARE, MEDICAID ==
[2021-08-02] MEDS ORDERED: Promethazine 25 MG/ML SDV IM ONE (09:31)
[2021-08-02] MEDS ORDERED: Morphine 2 MG/ML SYRINGE IVPUSH ONE (09:32)
[2021-08-02] MEDS ORDERED: Sodium Chloride 0.9% 1,000 ML IV SCH (09:45)
[2021-08-02] MEDS ORDERED: LORazepam 2 MG/ML SDV IVPUSH ONE (10:26)
[2021-08-02] MEDS ORDERED: LORazepam 2 MG/ML SDV ONE (10:30)
[2021-08-02] MEDS ORDERED: Ondansetron 4 MG Tab.DIS ONE (11:00)
[2021-08-02] MEDS ORDERED: GI Cocktail Oral Solution 30 ML PO ONE (11:07)
[2021-08-02 12:53] VITALS: BP 201/103; PULSE 60
--- NOTE | 2021-08-02 15:33 | EDM.PDOC ---
ED HPI GENERAL MEDICAL PROBLEM - General Chief Complaint: Gastrointestinal Problem Stated Complaint: STOMACH PAIN Time Seen by Provider: 08/02/21 08:49 Source of Information: Reports: Patient History Limitations: Reports: No Limitations - History of Present Illness INITIAL COMMENTS - FREE TEXT/NARRATIVE: Patient seen 07/31 for same in ED, patient was admitted to observation for pain control and nausea and control of anxiety secondary to not being able to take her psych medications. Patient return to the ED today for nausea vomiting and abdominal pain though this visit the abdominal pain was not as significant as it was on her prior visit. Patient went home after being discharged from the hospital and ate a large meal including rolon hughes pie. Gradual onset, eating made it worse, lying down makes it worse, nothing improves patient's pain. She describes it as a 4/10 on the pain scale today. Abdomen Pain Score (Numeric/FACES): 4 - Related Data Allergies Allergy/AdvReac Type Severity Reaction Status Date / Time penicillin Allergy Rash Verified 08/02/21 12:37 Home Meds: Home Meds FLUoxetine HCl [Fluoxetine HCl] 20 mg PO DAILY 03/08/15 [History] Lisinopril 10 mg PO DAILY 03/08/15 [History] Simvastatin 20 mg PO QPM 03/08/15 [History] clonazePAM [Clonazepam] 0.5 mg PO QID PRN 03/08/15 [History] Ibuprofen 800 mg PO DAILY PRN 03/09/15 [History] Omeprazole 20 mg PO ACBREAKFAST 03/09/15 [History] Aspirin [Yana Chewable Aspirin] 81 mg PO DAILY 02/04/18 [History] Acyclovir [Zovirax 5% Oint] 1 applic TOP ASDIRECTED PRN 03/15/18 [History] risperiDONE 0.5 mg PO QPM 05/12/20 [History] Acetaminophen [Tylenol] 650 mg PO ASDIRECTED PRN 04/12/21 [History] Acetaminophen [Tylenol Arthritis] 650 mg PO Q6HR PRN 07/31/21 [History] FLUoxetine HCl [Fluoxetine HCl] 40 mg PO DAILY 07/31/21 [History] Past Medical History - Past Health History Medical/Surgical History: Denies Medical/Surgical History Cardiovascular History: Reports: High Cholesterol, Hypertension, [place] Other Cardiovascular History: stress test showed probably LA Respiratory History: Reports: None Gastrointestinal History: Reports: GERD, Other (See Below) Other Gastrointestinal History: Umbilical Hernia Genitourinary History: Reports: STD, Other (See Below) Other Genitourinary History: herpes,genital 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 pregnancies reported Musculoskeletal History: Reports: None Other Musculoskeletal History: back pain history: better with past PT intervention Neurological History: Reports: Migraines Other Neuro History: had migraines several years ago Psychiatric History: Reports: Anxiety, Depression, PTSD Other Psychiatric History: social phobia Endocrine/Metabolic History: Reports: Diabetes, Type II Oncologic (Cancer) History: Reports: None - Past Surgical History Head Surgeries/Procedures: Reports: None HEENT Surgical History: Reports: Tonsillectomy Cardiovascular Surgical History: Reports: Coronary Artery Stent Other Cardiovascular Surgeries/Procedures: no pacemaker GI Surgical History: Reports: Hernia Repair/Other Other GI Surgeries/Procedures: Umbilical Hernia repair Female Surgical History: Reports: None Musculoskeletal Surgical History: Reports: None, Knee Replacement Other Musculoskeletal Surgeries/Procedures:: no further complaints Social & Family History - Family History Family Medical History: No Pertinent Family History GI: Reports: Colon Polyps Oncologic: Reports: Colon - Tobacco Use Tobacco Use Status *Q: Never Tobacco User - Caffeine Use Caffeine Use: Reports: Soda - Recreational Drug Use Recreational Drug Use: No ED ROS GENERAL - Review of Systems Review Of Systems: See Below Constitutional: Reports: No Symptoms HEENT: Reports: No Symptoms Respiratory: Reports: No Symptoms Cardiovascular: Reports: No Symptoms Endocrine: Reports: No Symptoms GI/Abdominal: Reports: Abdominal Pain, Diarrhea, Nausea, Vomiting : Reports: No Symptoms Musculoskeletal: Reports: No Symptoms Skin: Reports: No Symptoms Neurological: Reports: No Symptoms Psychiatric: Reports: Anxiety Hematologic/Lymphatic: Reports: No Symptoms Immunologic: Reports: No Symptoms ED EXAM, GI/ABD - Physical Exam Exam: See Below Text/Narrative:: 60-year-old female found in [place] 1 ED. Patient lying in semifowler position. Mild distress secondary to nausea and vomiting/pain. ABCs are intact. Alert and oriented through 3 GCS 4 5 6. No obvious trauma. Speaking in full sentences Exam Limited By: No Limitations General Appearance: Alert, WD/WN, No Apparent Distress Eyes: Bilateral: EOMI Ears: Normal External Exam, Hearing Grossly Normal Nose: Normal Inspection, No Blood Throat/Mouth: Normal Lips, Normal Voice, No Airway Compromise Head: Atraumatic, Normocephalic Neck: Normal Inspection, Supple, Non-Tender, Full Range of Motion. No: Lymphadenopathy (R), Lymphadenopathy (L) Respiratory/Chest: No Respiratory Distress, Lungs Clear, Normal Breath Sounds, No Accessory Muscle Use, Chest Non-Tender Cardiovascular: Normal Peripheral Pulses, Regular Rate, Rhythm, No Edema, No Gallop, No JVD, No Murmur, No Rub GI/Abdominal Exam: Normal Bowel Sounds, Soft, Non-Tender, No Distention, No Mass Back Exam: Normal Inspection. No: CVA Tenderness (R), CVA Tenderness (L) Extremities: Normal Inspection, Normal Range of Motion, Non-Tender, Normal Capillary Refill, No Pedal Edema Neurological: Alert, Oriented, Normal Cognition Psychiatric: Anxious Skin Exam: Warm, Dry, Intact, Normal Color, No Rash Lymphatic: No Adenopathy Course - Vital Signs Last Recorded V/S: Last Vital Signs Temp 97.0 F 08/02/21 10:00 Pulse 60 08/02/21 10:00 Resp 18 08/02/21 10:00 BP 201/103 H 08/02/21 10:00 Pulse Ox 97 08/02/21 10:00 - Orders/Labs/Meds Meds: Medications Discontinued Medications Generic Name Dose Route Start Last Admin Trade Name Freq PRN Reason Stop Dose Admin Al Hydroxide/Mg Hydroxide 30 ml 08/02/21 11:07 08/02/21 11:05 Gi Cocktail Oral Solution 30 Ml PO 08/02/21 11:08 30 ml ONETIME ONE Administration Sodium Chloride 1,000 mls @ 0 mls/hr 08/02/21 09:45 08/02/21 09:09 Normal Saline IV 999 mls/hr ASDIRECTED ROMAN Administration KVO Lorazepam Confirm 08/02/21 10:30 08/02/21 10:29 Lorazepam 2 Mg/Ml Sdv Administered 08/02/21 10:31 Not Given Dose 2 mg .ROUTE .STK-MED ONE Lorazepam 2 mg 08/02/21 10:26 08/02/21 10:28 Lorazepam 2 Mg/Ml Sdv IVPUSH 08/02/21 10:27 2 mg ONETIME ONE Administration Morphine Sulfate 2 mg 08/02/21 09:32 08/02/21 09:09 Morphine 2 Mg/Ml Syringe IVPUSH 08/02/21 09:33 2 mg ONETIME ONE Administration Ondansetron HCl 20 mg 08/02/21 11:00 Ondansetron 4 Mg Tab.Dis .ROUTE 08/02/21 11:01 .STK-MED ONE Promethazine HCl 50 mg 08/02/21 09:31 08/02/21 09:01 Promethazine 25 Mg/Ml Sdv IM 08/02/21 09:32 50 mg ONETIME ONE Administration Departure - Departure Time of Disposition: 11:20 Disposition: Home, Self-Care 01 Condition: Good Clinical Impression: Gastroenteritis, Anxiety, Vomiting, Abdominal pain - Discharge Information *PRESCRIPTION DRUG MONITORING PROGRAM REVIEWED*: No *COPY OF PRESCRIPTION DRUG MONITORING REPORT IN PATIENT ARIELLE: No Instructions: Ondansetron oral dissolving tablet, [place] Diet Referrals: PCP,None [Primary Care Provider] - Forms: ED Department Discharge Additional Instructions: Clear liquid diet for 2 days. Pedialyte, broth After being able to keep clear liquid down. Start on Brat diet. After 2 days of Brat diet and staying down. Slowly add regular food. Take Zofran after 5Pm today. Follow up with Primary Care Physician this week. Sepsis Event Note (ED) - Evaluation Sepsis Screening Result: No Definite Risk - Focused Exam Vital Signs: Vital Signs Temp Pulse Resp BP Pulse Ox 08/02/21 10:00 97.0 F 60 18 201/103 H 97 - Problem List & Annotations (1) Gastroenteritis SNOMED Code(s): 27667919 Code(s): K52.9 - NONINFECTIVE GASTROENTERITIS AND COLITIS, UNSPECIFIED Status: Resolved Priority: High - Problem List Review Problem List Initiated/Reviewed/Updated: No - Assessment/Plan Assessment:: No change in patient presentation, since last visit. Known trigger of eating large meal after being treated for gastroenteritis. Patient was treated with morphine and GI cocktail for the pain, Zofran and Phenergan for nausea and vomiting, Ativan for anxiety. Patient advised to hydrate with Pedialyte, start on clear liquid diet, after tolerating clear liquid diet for 1 day moved to brat diet, then slowly introduce bland foods. And to follow-up with primary care provider next week. Patient sent home with Zofran ODT to address her continuing nausea and vomiting. Return to the ED if symptoms persist and/or get worse. Patient understood treatment plan and agreed, all questions were answered to patient satisfaction. Patient was discharged in stable condition Plan: ABC, history, exam, morphine, Ativan, Phenergan, Zofran, patient education/shared decision-making, prescription Zofran ODT, discharged stable condition to follow-up with primary care provider 1 week
== END 2021-08-02 11:20 | disposition home or self-care (01) ==
LOC: LB.ED 08:46
DX: K52.9 Noninfective gastroenteritis and colitis, unspecified (principal); F41.9 Anxiety disorder, unspecified; E78.00 Pure hypercholesterolemia, unspecified; I10 Essential (primary) hypertension; I25.2 Old myocardial infarction; K21.9 Gastro-esophageal reflux disease without esophagitis; E11.9 Type 2 diabetes mellitus without complications; Z88.0 Allergy status to penicillin; Z79.82 Long term (current) use of aspirin; Z79.899 Other long term (current) drug therapy
CPT/HCPCS: 96372; 96374; 96375; 99283; A9270; J2060; J2270; J2550; J7030

== ENCOUNTER 2023-02-23 12:16 | Observation (INO) | payer MEDICARE, MEDICAID ==
[2023-02-23] MEDS ORDERED: Sodium Chloride 0.9% 1,000 ML IV ONE (12:20)
[2023-02-23] MEDS ORDERED: Ondansetron 4 MG/2 ML SDV IVPUSH ONE (12:21)
[2023-02-23] MEDS ORDERED: LORazepam 2 MG/ML SDV IVPUSH ONE (12:21)
[2023-02-23] MEDS ORDERED: Ondansetron 4 MG/2 ML SDV ONE (12:33)
[2023-02-23] MEDS ORDERED: LORazepam 2 MG/ML SDV ONE (12:33)
[2023-02-23 12:36] LABS: BASOPHILS ABSOLUTE AUTO 0.03 K/uL (0.02-0.10); BASOPHILS PERCENT AUTO 0.2 % (0.0-0.5); HEMATOCRIT 44.9 % (37.0-47.0); HEMOGLOBIN 15.4 g/dL (11.5-16.5); LYMPHOCYTES ABSOLUTE AUTO 1.15 K/uL (1.50-4.00); LYMPHOCYTES PERCENT AUTO 8.1 % (20.0-40.0); MEAN CORPUSCULAR HEMOGLOBIN 30.8 pg (27.0-32.0); MEAN CORPUSCULAR HGB CONC 34.3 g/dL (31.0-35.0); MEAN CORPUSCULAR VOLUME 90 fL (76-96); MEAN PLATELET VOLUME 9.7 fL (6.0-10.0); MONOCYTES ABSOLUTE AUTO 0.47 K/uL (0.20-0.80); MONOCYTES PERCENT AUTO 3.3 % (3.0-10.0); NEUTROPHILS PERCENT AUTO 88.4 % (45.0-70.0); PLATELET COUNT,PLT 354 K/uL (150-500); RED CELL DISTRIBUTION WIDTH 13.6 % (11.0-16.0); WHITE BLOOD CELL COUNT,WBC 14.3 K/uL (4.0-11.0)
[2023-02-23 12:57] LABS: ALBUMIN 4.3 g/dL (3.4-5.0); ANION GAP 29.8 mmol/L (5.0-15.0); BILIRUBIN TOTAL 0.8 mg/dL (0.0-1.0); BUN/CREATININE RATIO 14.7 (6-25); CREATININE 1.63 mg/dL (0.55-1.02); EST CRCL DRUG DOSING (CG) 33.91 mL/min; PROTEIN TOTAL,TP 8.5 g/dL (6.4-8.2)
[2023-02-23 12:58] LABS: POTASSIUM,K 2.8 mmol/L (3.5-5.1)
[2023-02-23] MEDS ORDERED: Labetalol 100 MG/20 ML MDV IVPUSH ONE (13:04)
[2023-02-23] MEDS ORDERED: Magnesium Sulfate/Water 2 GM in Premix Bag 1 BAG IV ONE (13:04)
[2023-02-23] MEDS ORDERED: NS + KCl 20mEq/L 1,000 ML IV SCH (13:15)
[2023-02-23] MEDS ORDERED: Magnesium Sulfate/Water 50 ML ONE (13:27)
[2023-02-23] MEDS ORDERED: Pantoprazole 40 MG Vial IVPUSH ONE (14:53)
[2023-02-23] MEDS ORDERED: GI Cocktail Oral Solution 30 ML PO ONE (15:44)
[2023-02-23] MEDS ORDERED: Pantoprazole 40 MG Vial ONE (15:45)
[2023-02-23 16:11] LABS: HEMATOCRIT 39.5 % (37.0-47.0); HEMOGLOBIN 13.7 g/dL (11.5-16.5); MEAN CORPUSCULAR HEMOGLOBIN 30.7 pg (27.0-32.0); MEAN CORPUSCULAR HGB CONC 34.7 g/dL (31.0-35.0); MEAN CORPUSCULAR VOLUME 89 fL (76-96); MEAN PLATELET VOLUME 9.7 fL (6.0-10.0); PLATELET COUNT,PLT 298 K/uL (150-500); RED BLOOD CELL COUNT 4.46 M/uL (3.80-5.80); RED CELL DISTRIBUTION WIDTH 13.3 % (11.0-16.0)
[2023-02-23 16:19] LABS: ANION GAP 14.6 mmol/L (5.0-15.0); BUN/CREATININE RATIO 19.2 (6-25); CALCIUM 8.2 mg/dL (8.5-10.1); CARBON DIOXIDE,CO2 24.7 mmol/L (21.0-32.0); CREATININE 0.99 mg/dL (0.55-1.02); EST CRCL DRUG DOSING (CG) 55.83 mL/min; POTASSIUM,K 3.3 mmol/L (3.5-5.1)
[2023-02-23] MEDS ORDERED: Non-Formulary Medication 1 Each (Lisinopril [Lisinopril] 10 MG Tablet) PO SCH (17:33)
[2023-02-23] MEDS ORDERED: CLONAZEPAM 0.5 MG PO PRN ×2 (17:33→18:35)
[2023-02-23] MEDS ORDERED: Non-Formulary Medication 1 Each (Fluoxetine Hcl [Fluoxetine Hcl] 20 MG Capsule) PO SCH (17:33)
[2023-02-23] MEDS ORDERED: FLUOXETINE 20 MG PO SCH (18:32)
[2023-02-23] MEDS ORDERED: FLUOXETINE 40 MG PO SCH (18:45)
[2023-02-23] MEDS: Ondansetron 4 MG/2 ML SDV IVPUSH SCH ×2 (19:34→20:45)
[2023-02-23] MEDS: FLUOXETINE 40 MG PO SCH (19:55)
[2023-02-23] MEDS: FLUOXETINE 20 MG PO SCH (19:55)
[2023-02-23] MEDS: Lisinopril 10 MG Tab **OWN MED PO SCH (19:57)
[2023-02-23] MEDS ORDERED: Mirtazapine 15 MG Tab **OWN MED PO PRN (20:00)
[2023-02-23] MEDS ORDERED: Cyclobenzaprine 10 MG Tab **OWN MED PO SCH (20:00)
[2023-02-23] MEDS ORDERED: RISPERIDONE 0.5 MG PO SCH (20:00)
[2023-02-23] MEDS: LORazepam 1 MG Tab PO PRN (20:44)
[2023-02-23 23:10] LABS: APPEARANCE,URINE CLEAR (CLEAR); BILIRUBIN,URINE NEGATIVE (NEGATIVE); COLOR,URINE YELLOW; GLUCOSE,URINE NEGATIVE (NEGATIVE); KETONES,URINE NEGATIVE (NEGATIVE); LEUKOCYTE ESTERASE,URINE TRACE (NEGATIVE); NITRITE,URINE NEGATIVE (NEGATIVE); OCCULT BLOOD,URINE SMALL (NEGATIVE); PH,URINE 6.5 (5.0-8.0); PROTEIN,URINE NEGATIVE (NEGATIVE); UROBILINOGEN,URINE 0.2 E.U./dL (0.2-1.0)
[2023-02-23 23:19] LABS: RBC,URINE 0-5 /HPF; SQUAMOUS EPITHELIAL CELLS,UR OCCASIONAL /HPF; WBC,URINE 0-5 /HPF
[2023-02-23 23:20] LABS: AMPHETAMINES SCREEN, URINE NEGATIVE (NEGATIVE); BARBITURATE SCREEN,URINE NEGATIVE (NEGATIVE); BENZODIAZEPINES SCREEN,URINE POSITIVE (NEGATIVE); METHADONE SCREEN, URINE NEGATIVE (NEGATIVE); METHAMPHETAMINES SCREEN, URINE NEGATIVE (NEGATIVE); OXYCODONE SCREEN,URINE NEGATIVE (NEGATIVE); THC SCREEN,URINE 50 NG/ML POSITIVE (NEGATIVE)
[2023-02-24] MEDS ORDERED: Ondansetron 4 MG/2 ML SDV ONE (00:11)
[2023-02-24] MEDS: Ondansetron 4 MG/2 ML SDV IVPUSH SCH ×3 (00:14→06:11)
[2023-02-24 07:38] LABS: HEMATOCRIT 40.1 % (37.0-47.0); HEMOGLOBIN 13.6 g/dL (11.5-16.5); MEAN CORPUSCULAR HGB CONC 33.9 g/dL (31.0-35.0); RED BLOOD CELL COUNT 4.39 M/uL (3.80-5.80); RED CELL DISTRIBUTION WIDTH 13.8 % (11.0-16.0); WHITE BLOOD CELL COUNT,WBC 13.6 K/uL (4.0-11.0)
[2023-02-24] MEDS: FLUOXETINE 40 MG PO SCH (07:43)
[2023-02-24] MEDS: FLUOXETINE 20 MG PO SCH (07:43)
[2023-02-24 07:44] VITALS: BP 121/85
[2023-02-24] MEDS: Lisinopril 10 MG Tab **OWN MED PO SCH (07:44)
[2023-02-24 07:49] VITALS: PULSE 75
[2023-02-24] MEDS: LORazepam 1 MG Tab PO PRN (07:53)
[2023-02-24 07:57] LABS: ANION GAP 11.3 mmol/L (5.0-15.0); BUN/CREATININE RATIO 15.2 (6-25); CALCIUM 8.1 mg/dL (8.5-10.1); CREATININE 0.99 mg/dL (0.55-1.02); EST CRCL DRUG DOSING (CG) 55.83 mL/min; POTASSIUM,K 3.3 mmol/L (3.5-5.1)
[2023-02-24] MEDS ORDERED: Non-Formulary Medication 1 Each (Cyclobenzaprine [Flexeril] 10 MG Tablet) PO SCH (08:00)
[2023-02-24] MEDS ORDERED: Pantoprazole 40 MG Vial IVPUSH SCH (08:00)
[2023-02-24 09:28] LABS: GIANT PLATELETS OCCASIONAL
== END 2023-02-24 09:15 | disposition home or self-care (01) ==
LOC: LB.ED 12:16 → UNDOADMOB 17:20 → LB.MS 17:20
PROVIDERS: ADMIT Physician Assistant; ATTEND Physician Assistant
DX: F10.139 Alcohol abuse with withdrawal, unspecified (principal); E78.00 Pure hypercholesterolemia, unspecified; I10 Essential (primary) hypertension; K21.9 Gastro-esophageal reflux disease without esophagitis; G43.909 Migraine, unspecified, not intractable, without status migrainosus; F41.9 Anxiety disorder, unspecified; F32.A Depression, unspecified; E66.9 Obesity, unspecified; F17.210 Nicotine dependence, cigarettes, uncomplicated; Z90.49 Acquired absence of other specified parts of digestive tract; Z98.890 Other specified postprocedural states; Z96.649 Presence of unspecified artificial hip joint; Z96.659 Presence of unspecified artificial knee joint; Z88.0 Allergy status to penicillin; Z79.82 Long term (current) use of aspirin; Z79.899 Other long term (current) drug therapy; Y90.2 Blood alcohol level of 40-59 mg/100 ml
CPT/HCPCS: 36415; 80048; 80053; 80307; 81001; 83735; 85025; 85027; 96361; 96365; 96366; 96367; 96375; 99222; 99238; 99285-25; A0425; A0429; A9270-GY; C9113; J2060; J2405; J3475; J3480; J7030

== ENCOUNTER 2024-06-25 11:09 | Emergency (ER) | payer MEDICARE, MEDICAID ==
[2024-06-25] MEDS: Lactated Ringers 1,000 ML IV SCH (11:26)
[2024-06-25] MEDS: diazePAM 5 MG/ML MDV IV ONE ×2 (11:28→12:53)
[2024-06-25] MEDS: Ondansetron 4 MG/2 ML SDV IVPUSH ONE (11:31)
[2024-06-25 11:35] LABS: BASOPHILS ABSOLUTE AUTO 0.05 K/uL (0.02-0.10); BASOPHILS PERCENT AUTO 0.3 % (0.0-0.5); HEMATOCRIT 39.8 % (37.0-47.0); HEMOGLOBIN 13.8 g/dL (11.5-16.5); LYMPHOCYTES ABSOLUTE AUTO 1.13 K/uL (1.50-4.00); LYMPHOCYTES PERCENT AUTO 6.3 % (20.0-40.0); MEAN CORPUSCULAR HEMOGLOBIN 31.6 pg (27.0-32.0); MEAN CORPUSCULAR HGB CONC 34.7 g/dL (31.0-35.0); MEAN CORPUSCULAR VOLUME 91 fL (76-96); MONOCYTES ABSOLUTE AUTO 0.97 K/uL (0.20-0.80); MONOCYTES PERCENT AUTO 5.4 % (3.0-10.0); NEUTROPHILS ABSOLUTE AUTO 15.74 K/uL (2.00-7.50); PLATELET COUNT,PLT 271 K/uL (150-500); RED BLOOD CELL COUNT 4.37 M/uL (3.80-5.80); WHITE BLOOD CELL COUNT,WBC 17.9 K/uL (4.0-11.0)
[2024-06-25 12:05] LABS: INR 1.1 (1.0-3.5)
[2024-06-25 12:18] LABS: ALBUMIN 4.2 g/dL (3.4-5.0); BILIRUBIN TOTAL 0.8 mg/dL (0.0-1.0); CARBON DIOXIDE,CO2 21.5 mmol/L (21.0-32.0); CREATININE 1.05 mg/dL (0.55-1.02); EST CRCL DRUG DOSING (CG) 52.91 mL/min; POTASSIUM,K 3.5 mmol/L (3.5-5.1); PROTEIN TOTAL,TP 8.2 g/dL (6.4-8.2)
[2024-06-25 12:48] LABS: CORONAVIRUS COVID-19 NAA NEGATIVE (NEGATIVE); INFLUENZA A NAA NEGATIVE (NEGATIVE); INFLUENZA B NAA NEGATIVE (NEGATIVE)
[2024-06-25 12:58] LABS: APPEARANCE,URINE CLOUDY (CLEAR); COLOR,URINE YELLOW
[2024-06-25 12:59] LABS: BILIRUBIN,URINE NEGATIVE (NEGATIVE); GLUCOSE,URINE NEGATIVE (NEGATIVE); KETONES,URINE 40 mg/dL (NEGATIVE); LEUKOCYTE ESTERASE,URINE NEGATIVE (NEGATIVE); NITRITE,URINE NEGATIVE (NEGATIVE); OCCULT BLOOD,URINE MODERATE (NEGATIVE); PROTEIN,URINE 100 mg/dL (NEGATIVE); UROBILINOGEN,URINE 0.2 E.U./dL (0.2-1.0)
[2024-06-25 13:00] LABS: SQUAMOUS EPITHELIAL CELLS,UR FEW /HPF; WBC,URINE 0-5 /HPF
[2024-06-25] MEDS: Folic Acid 1 MG Tab PO ONE (13:05)
[2024-06-25] MEDS: Thiamine 100 MG in Sodium Chloride 0.9% 100 ML IV ONE (13:06)
[2024-06-25] MEDS: GI Cocktail Oral Solution 30 ML PO ONE (13:46)
[2024-06-25] MEDS ORDERED: Lactated Ringers 1,000 ML IV SCH (16:00)
[2024-06-25] MEDS: PHENobarbitaL sodium 130 MG in Sodium Chloride 0.9% 100 ML IV ONE (16:13)
[2024-06-25 19:49] VITALS: BP 143/84; PULSE 81
== END 2024-06-25 18:53 | disposition home or self-care (01) ==
LOC: LB.ED 11:09
DX: F10.239 Alcohol dependence with withdrawal, unspecified (principal); I10 Essential (primary) hypertension; E78.00 Pure hypercholesterolemia, unspecified; K21.9 Gastro-esophageal reflux disease without esophagitis; E66.9 Obesity, unspecified; Z79.899 Other long term (current) drug therapy; Z79.82 Long term (current) use of aspirin; Z88.0 Allergy status to penicillin; Z68.27 Body mass index [BMI] 27.0-27.9, adult
CPT/HCPCS: 0240U; 36415; 71045; 80053; 80307; 81001; 83690; 83880; 84484; 85025; 85610; 93005; 96361; 96365; 96367; 96375; 96376; 99284; 99284-25; A9270-GY; J2405; J2560; J3360; J3411; J3490; J7120

== ENCOUNTER 2024-07-31 16:55 | Inpatient (IN) | payer MEDICAID ==
[2024-07-31] MEDS: Ondansetron 4 MG Tab.DIS PO ONE ×2 (17:48→20:28)
[2024-07-31] MEDS: Ondansetron 4 MG Tab.DIS ONE ×2 (18:21→21:06)
[2024-07-31 18:31] LABS: BASOPHILS ABSOLUTE AUTO 0.08 K/uL (0.02-0.10); BASOPHILS PERCENT AUTO 0.4 % (0.0-0.5); EOSINOPHILS ABSOLUTE AUTO 0.03 K/uL (0.04-0.40); EOSINOPHILS PERCENT AUTO 0.1 % (1.0-5.0); HEMATOCRIT 47.7 % (37.0-47.0); HEMOGLOBIN 16.8 g/dL (11.5-16.5); LYMPHOCYTES ABSOLUTE AUTO 2.58 K/uL (1.50-4.00); LYMPHOCYTES PERCENT AUTO 12.4 % (20.0-40.0); MEAN CORPUSCULAR HEMOGLOBIN 32.2 pg (27.0-32.0); MEAN CORPUSCULAR HGB CONC 35.2 g/dL (31.0-35.0); MEAN CORPUSCULAR VOLUME 92 fL (76-96); MEAN PLATELET VOLUME 9.8 fL (6.0-10.0); MONOCYTES ABSOLUTE AUTO 1.12 K/uL (0.20-0.80); MONOCYTES PERCENT AUTO 5.4 % (3.0-10.0); NEUTROPHILS ABSOLUTE AUTO 17.01 K/uL (2.00-7.50); NEUTROPHILS PERCENT AUTO 81.7 % (45.0-70.0); PLATELET COUNT,PLT 232 K/uL (150-500); RED BLOOD CELL COUNT 5.21 M/uL (3.80-5.80); RED CELL DISTRIBUTION WIDTH 13.1 % (11.0-16.0)
[2024-07-31] MEDS: ClonazePAM 0.5 MG Tab PO ONE ×2 (18:46→23:36)
[2024-07-31 18:52] LABS: INFLUENZA A NAA NEGATIVE (NEGATIVE); INFLUENZA B NAA NEGATIVE (NEGATIVE); RESPIRATORY SYNCYTIAL VIR NAA NEGATIVE (NEGATIVE)
[2024-07-31 18:54] LABS: WHITE BLOOD CELL COUNT,WBC 20.8 K/uL (4.0-11.0)
[2024-07-31 18:56] LABS: AMPHETAMINES SCREEN, URINE NEGATIVE (NEGATIVE); BARBITURATE SCREEN,URINE NEGATIVE (NEGATIVE); BENZODIAZEPINES SCREEN,URINE NEGATIVE (NEGATIVE); CORONAVIRUS COVID-19 NAA NEGATIVE (NEGATIVE); METHADONE SCREEN, URINE NEGATIVE (NEGATIVE); METHAMPHETAMINES SCREEN, URINE NEGATIVE (NEGATIVE); OXYCODONE SCREEN,URINE NEGATIVE (NEGATIVE); THC SCREEN,URINE 50 NG/ML POSITIVE (NEGATIVE)
[2024-07-31 18:58] LABS: ALBUMIN 4.4 g/dL (3.4-5.0); ANION GAP 26.6 mmol/L (5.0-15.0); BILIRUBIN TOTAL 0.3 mg/dL (0.0-1.0); CALCIUM 9.1 mg/dL (8.5-10.1); CARBON DIOXIDE,CO2 17.9 mmol/L (21.0-32.0); CREATININE 1.08 mg/dL (0.55-1.02); EST CRCL DRUG DOSING (CG) 50.5 mL/min; POTASSIUM,K 3.5 mmol/L (3.5-5.1)
[2024-07-31 19:41] LABS: APPEARANCE,URINE CLEAR (CLEAR); BILIRUBIN,URINE NEGATIVE (NEGATIVE); COLOR,URINE YELLOW; GLUCOSE,URINE NEGATIVE (NEGATIVE); KETONES,URINE NEGATIVE (NEGATIVE); LEUKOCYTE ESTERASE,URINE NEGATIVE (NEGATIVE); NITRITE,URINE NEGATIVE (NEGATIVE); OCCULT BLOOD,URINE SMALL (NEGATIVE); PH,URINE 5.5 (5.0-8.0); PROTEIN,URINE 30 mg/dL (NEGATIVE); RBC,URINE 0-5 /HPF; UROBILINOGEN,URINE 0.2 E.U./dL (0.2-1.0); WBC,URINE NOT SEEN /HPF
[2024-07-31 19:42] LABS: SQUAMOUS EPITHELIAL CELLS,UR OCCASIONAL /HPF
[2024-07-31] MEDS: ClonazePAM 0.5 MG Tab ONE (19:46)
[2024-07-31] MEDS: Sodium Chloride 0.9% 1,000 ML IV SCH (20:50)
[2024-07-31] MEDS: LORazepam 2 MG/ML SDV IVPUSH ONE (20:58)
[2024-07-31] MEDS: LORazepam 2 MG/ML SDV ONE (21:06)
[2024-07-31 21:44] LABS: BASOPHILS ABSOLUTE AUTO 0.06 K/uL (0.02-0.10); BASOPHILS PERCENT AUTO 0.3 % (0.0-0.5); EOSINOPHILS ABSOLUTE AUTO 0.01 K/uL (0.04-0.40); HEMATOCRIT 42.2 % (37.0-47.0); HEMOGLOBIN 14.7 g/dL (11.5-16.5); LYMPHOCYTES ABSOLUTE AUTO 1.89 K/uL (1.50-4.00); LYMPHOCYTES PERCENT AUTO 8.6 % (20.0-40.0); MEAN CORPUSCULAR HEMOGLOBIN 32.2 pg (27.0-32.0); MEAN CORPUSCULAR HGB CONC 34.8 g/dL (31.0-35.0); MEAN CORPUSCULAR VOLUME 92 fL (76-96); MEAN PLATELET VOLUME 10.5 fL (6.0-10.0); MONOCYTES ABSOLUTE AUTO 0.92 K/uL (0.20-0.80); MONOCYTES PERCENT AUTO 4.2 % (3.0-10.0); NEUTROPHILS PERCENT AUTO 86.9 % (45.0-70.0); PLATELET COUNT,PLT 217 K/uL (150-500); RED BLOOD CELL COUNT 4.57 M/uL (3.80-5.80); RED CELL DISTRIBUTION WIDTH 13.2 % (11.0-16.0)
[2024-07-31 21:45] LABS: WHITE BLOOD CELL COUNT,WBC 22.1 K/uL (4.0-11.0)
[2024-07-31] MEDS: cefTRIAXone 2 GM in Sodium Chloride 0.9% 100 ML IV ONE (22:50)
[2024-07-31] MEDS ORDERED: Acetaminophen 650 MG Tab.ER PO PRN (23:53)
[2024-08-01] MEDS: Sodium Chloride 0.9% 1,000 ML IV SCH (00:26)
[2024-08-01] MEDS: LORazepam 2 MG/ML SDV IV PRN (00:27)
[2024-08-01] MEDS: Ondansetron 4 MG/2 ML SDV IVPUSH PRN (00:30)
[2024-08-01] MEDS: risperiDONE 1 MG Tab PO SCH (00:50)
[2024-08-01] MEDS: Mirtazapine 15 MG Tab PO PRN (00:50)
[2024-08-01] MEDS: FLUoxetine 20 MG Cap PO SCH (00:50)
[2024-08-01] MEDS: Thiamine 100 MG Tab PO SCH (07:11)
[2024-08-01] MEDS: Pantoprazole 40 MG Tab.CR PO SCH (07:12)
[2024-08-01] MEDS: Multivitamin Tab PO SCH (07:12)
[2024-08-01] MEDS: Folic Acid 1 MG Tab PO SCH (07:12)
[2024-08-01 08:21] LABS: BASOPHILS ABSOLUTE AUTO 0.03 K/uL (0.02-0.10); BASOPHILS PERCENT AUTO 0.2 % (0.0-0.5); HEMATOCRIT 36.9 % (37.0-47.0); HEMOGLOBIN 12.7 g/dL (11.5-16.5); LYMPHOCYTES ABSOLUTE AUTO 0.95 K/uL (1.50-4.00); LYMPHOCYTES PERCENT AUTO 6.8 % (20.0-40.0); MEAN CORPUSCULAR HEMOGLOBIN 31.7 pg (27.0-32.0); MEAN CORPUSCULAR HGB CONC 34.4 g/dL (31.0-35.0); MEAN CORPUSCULAR VOLUME 92 fL (76-96); MEAN PLATELET VOLUME 9.9 fL (6.0-10.0); MONOCYTES ABSOLUTE AUTO 1.01 K/uL (0.20-0.80); MONOCYTES PERCENT AUTO 7.2 % (3.0-10.0); NEUTROPHILS ABSOLUTE AUTO 11.97 K/uL (2.00-7.50); NEUTROPHILS PERCENT AUTO 85.8 % (45.0-70.0); PLATELET COUNT,PLT 189 K/uL (150-500); RED BLOOD CELL COUNT 4.01 M/uL (3.80-5.80); RED CELL DISTRIBUTION WIDTH 12.8 % (11.0-16.0)
[2024-08-01 08:30] LABS: BLOOD UREA NITROGEN,BUN 11 mg/dL (8-26); BUN/CREATININE RATIO 11.7 (6-25); CARBON DIOXIDE,CO2 22.8 mmol/L (21.0-32.0); CHLORIDE,CL 104 mmol/L (98-107); CREATININE 0.94 mg/dL (0.55-1.02); EST CRCL DRUG DOSING (CG) 58.02 mL/min; ESTIMATED GFR 67 mL/min (>60); GLUCOSE RANDOM 141 mg/dL (74-100); POTASSIUM,K 3.8 mmol/L (3.5-5.1); SODIUM,NA 141 mmol/L (136-145)
[2024-08-01 08:31] LABS: CALCIUM 8.3 mg/dL (8.5-10.1); LIPASE 17 U/L (16-77)
[2024-08-01] MEDS: Aspirin 81 MG Tab.Chew PO SCH (08:39)
[2024-08-01 08:49] LABS: ETHANOL BLOOD MEDICAL < 3.0 mg/dL (<3.0)
[2024-08-01 17:07] VITALS: BP 160/103; PULSE 89
[2024-08-01] MEDS ORDERED: Lisinopril 10 MG Tab PO SCH (20:00)
[2024-08-01] MEDS ORDERED: Cyclobenzaprine 10 MG Tab PO SCH (20:00)
== END 2024-08-01 17:05 | disposition home or self-care (01) | DRG 872 ==
LOC: LB.ED 16:55 → UNDOADMIN 22:25 → LB.MS 22:25 → UNDODISIN 08-01 17:05
PROVIDERS: ADMIT Family Medicine; ATTEND Family Medicine
DX: A41.9 Sepsis, unspecified organism (principal); F10.139 Alcohol abuse with withdrawal, unspecified; F33.1 Major depressive disorder, recurrent, moderate; G43.909 Migraine, unspecified, not intractable, without status migrainosus; K21.9 Gastro-esophageal reflux disease without esophagitis; F10.129 Alcohol abuse with intoxication, unspecified; Z96.659 Presence of unspecified artificial knee joint; Z96.649 Presence of unspecified artificial hip joint; Y90.7 Blood alcohol level of 200-239 mg/100 ml; E78.00 Pure hypercholesterolemia, unspecified; B00.9 Herpesviral infection, unspecified; I10 Essential (primary) hypertension; F41.9 Anxiety disorder, unspecified; H54.7 Unspecified visual loss; F32.A Depression, unspecified; E66.9 Obesity, unspecified; Z88.0 Allergy status to penicillin; Z79.82 Long term (current) use of aspirin; Z79.899 Other long term (current) drug therapy; Z79.02 Long term (current) use of antithrombotics/antiplatelets; Z79.1 Long term (current) use of non-steroidal anti-inflammatories (NSAID); Z68.28 Body mass index [BMI] 28.0-28.9, adult
CPT/HCPCS: 0241U; 36415; 71045; 80048; 80053; 80307; 81001; 82550; 83605; 83690; 85025; 87040; 96361; 96374; 99222; 99238; 99285-25; A9270-GY; J0696; J2060; J2405; J3490; J7030; Q0162